=== PATIENT | male | born 1960 | race American Indian/Alaskan Native ===

== ENCOUNTER 2017-03-22 16:10 | Emergency (ER) | payer MEDICAID ==
[2017-03-22 17:04] LABS: Hemoglobin 10.8 gm/dl (11.8-15.2); Mean Corpuscular HGB Conc 33 % (32-34); Mean Corpuscular Hemoglobin 29 pg (28-32); Mean Corpuscular Volume 87 fl (84-94); Platelet Count 388 K/mm3 (140-440); Red Blood Count 3.77 M/mm3 (3.65-5.03); Red Cell Distribution Width 15.3 % (13.2-15.2); White Blood Count 10.1 K/mm3 (4.5-11.0)
[2017-03-22 17:09] LABS: Anion Gap 18 mmol/L; BUN/Creatinine Ratio 11.66; Blood Urea Nitrogen 14 mg/dL (9-20); Calcium 9.6 mg/dL (8.4-10.2); Carbon Dioxide 27 mmol/L (22-30); Chloride 100.6 mmol/L (98-107); Glucose 92 mg/dL (75-100); Potassium 4.1 mmol/L (3.6-5.0); Sodium 141 mmol/L (137-145)
[2017-03-22 17:10] VITALS: BP 114/75
[2017-03-22] MEDS ORDERED: PROVENTIL IH ONE (17:42)
[2017-03-22] MEDS ORDERED: MAGNESIUM SULFATE 2GM/50ML 2 GM/50 ML BAG IV ONE (17:42)
[2017-03-22] MEDS ORDERED: ATROVENT IH ONE (17:42)
[2017-03-22] MEDS ORDERED: PEPCID IV ONE (17:43)
[2017-03-22] MEDS ORDERED: TORADOL IV ONE (17:43)
[2017-03-22] MEDS ORDERED: NACL 0.9% 500 ML 500 ML IV ONE (17:43)
[2017-03-22 17:47] LABS: Blastocytes % (Manual) 0 %
[2017-03-22 17:48] LABS: Anisocytosis 1+; Giant Platelets Few; Hypochromasia 1+
[2017-03-22 17:49] LABS: Diff Status Complete; Platelet Estimate Consistent w Auto
[2017-03-22 18:18] LABS: INR 1.02 (0.87-1.13)
--- NOTE | 2017-03-22 19:28 | Emergency Department Report ---
ED General Adult HPI - General Chief complaint: Chest Pain Stated complaint: CHEST PAIN Time Seen by Provider: 03/22/17 17:36 Source: patient, RN notes reviewed, old records reviewed Mode of arrival: Ambulatory Limitations: No Limitations - History of Present Illness Initial comments: This is a 56-year-old male. He is previously unknown to me. Past medical history includes heart disease, 2 stents, COPD, on 2 L of home oxygen, hypertension and high cholesterol. The patient can't recall the name of his primary care doctor, warp hauler or airways operations specialist. The patient reports that his home oxygen has run out. The patient presents to the ER with chest pain and shortness of breath. The symptoms have been present for 3 days. The patient indicates the chest pain as central, and does not radiate to the back, arms or neck. There is no leg pain. There is no leg swelling. No recent trips greater than 4 hours. No recent hospital admissions. The patient further indicates that he is coughing more, has worsened wheezing, new mucous production. The patient had a stress test at this hospital a few weeks ago, as per discharge summary, it appears that the stress test was unremarkable The patient was treated empirically with albuterol, Atrovent, steroids, magnesium and Toradol. The patient was able to ambulate on oxygen, and desaturated to 94%. The patient indicated that he would not be able to have his home oxygen filled. Given that he is still actively wheezing, still having shortness of breath, does not have oxygen at home, the patient is not a safe discharge. Therefore, he will be admitted for COPD exacerbation. The patient has no pulmonary embolus or DVT risk factors, he is low risk by well 's criteria. I think acute coronary syndrome is unlikely and troponins are negative 2 -: Gradual Location: chest Severity scale (0 -10): 4 Quality: aching Consistency: other (per hpi) Improves with: other (per hpi) Worsens with: other (per hpi) Associated Symptoms: chest pain, shortness of breath - Related Data Home Medications Medication Instructions Recorded Confirmed Last Taken Albuterol Sulfate [Proair 2 puff PO Q6H 02/15/17 03/22/17 Unknown Respiclick] Aspirin 81 mg PO DAILY 02/15/17 03/22/17 Unknown Diltiazem Cd [Cardizem CD] 1 mg PO BID 02/15/17 03/22/17 Unknown Metoprolol Succinate 25 mg PO BID 02/15/17 03/22/17 Unknown Multivit-Min/FA/Lycopen/Lutein 1 each PO DAILY 02/15/17 03/22/17 Unknown [Centrum Silver Tablet] Ticagrelor [Brilinta] 90 mg PO BID 02/15/17 03/22/17 Unknown Triamter/Hctz 37.5-25 mg 1 tab PO QDAY 02/15/17 03/22/17 Unknown [Maxzide-25] Previous Rx's Medication Instructions Recorded Last Taken Type Famotidine [Pepcid] 20 mg PO BID #60 tablet 02/16/17 Unknown Rx Albuterol Sulfate [Albuterol 0.63% 0.63 mg IH Q4HR PRN #2 ml 03/22/17 Unknown Rx NEBS] Albuterol Sulfate [Proair 90 mcg IH Q4HR PRN #2 aer.pow.ba 03/22/17 Unknown Rx Respiclick] Azithromycin [Zithromax Z-CORAZON] 250 mg PO QDAY #4 tablet 03/22/17 Unknown Rx Ipratropium [place] [Atrovent Hfa] 12.9 gm IH Q4HR #2 hfa.aer.ad 03/22/17 Unknown Rx Ipratropium [Atrovent NEB] 0.5 mg IH Q4HR #2 ml 03/22/17 Unknown Rx predniSONE [Deltasone] 40 mg PO QDAY #8 tab 03/22/17 Unknown Rx Allergies Allergy/AdvReac Type Severity Reaction Status Date / Time No Known Allergies Allergy Verified 03/07/16 11:53 ED Review of Systems ROS: Stated complaint: CHEST PAIN Other details as noted in HPI Constitutional: denies: fever Eyes: denies: vision change ENT: denies: epistaxis Respiratory: cough Cardiovascular: chest pain Gastrointestinal: denies: vomiting Genitourinary: denies: dysuria Musculoskeletal: arthralgia, myalgia Skin: denies: lesions Neurological: weakness ED Past Medical Hx - Past Medical History Hx Hypertension: Yes Hx Congestive Heart Failure: No Hx Diabetes: No Hx Asthma: Yes Hx COPD: Yes Hx HIV: No - Surgical History Additional Surgical History: Cardiac Stents - Social History Smoking Status: Never Smoker Substance Use Type: None - Medications Home Medications: Home Medications Medication Instructions Recorded Confirmed Last Taken Type Albuterol Sulfate [Proair 2 puff PO Q6H 02/15/17 03/22/17 Unknown History Respiclick] Aspirin 81 mg PO DAILY 02/15/17 03/22/17 Unknown History Diltiazem Cd [Cardizem CD] 1 mg PO BID 02/15/17 03/22/17 Unknown History Metoprolol Succinate 25 mg PO BID 02/15/17 03/22/17 Unknown History Multivit-Min/FA/Lycopen/Lutein 1 each PO DAILY 02/15/17 03/22/17 Unknown History [Centrum Silver Tablet] Ticagrelor [Brilinta] 90 mg PO BID 02/15/17 03/22/17 Unknown History Triamter/Hctz 37.5-25 mg 1 tab PO QDAY 02/15/17 03/22/17 Unknown History [Maxzide-25] Famotidine [Pepcid] 20 mg PO BID #60 tablet 02/16/17 03/22/17 Unknown Rx Albuterol Sulfate [Albuterol 0.63% 0.63 mg IH Q4HR PRN #2 ml 03/22/17 Unknown Rx NEBS] Albuterol Sulfate [Proair 90 mcg IH Q4HR PRN #2 aer.pow.ba 03/22/17 Unknown Rx Respiclick] Azithromycin [Zithromax Z-CORAZON] 250 mg PO QDAY #4 tablet 03/22/17 Unknown Rx Ipratropium [place] [Atrovent Hfa] 12.9 gm IH Q4HR #2 hfa.aer.ad 03/22/17 Unknown Rx Ipratropium [Atrovent NEB] 0.5 mg IH Q4HR #2 ml 03/22/17 Unknown Rx predniSONE [Deltasone] 40 mg PO QDAY #8 tab 03/22/17 Unknown Rx ED Physical Exam - General Limitations: Physical Limitation General appearance: alert, in no apparent distress - Head Head exam: Present: atraumatic, normocephalic - Eye Eye exam: Present: normal appearance, EOMI - ENT ENT exam: Present: normal exam, normal orophraynx, mucous membranes moist, normal external ear exam - Neck Neck exam: Present: normal inspection, full ROM. Absent: tenderness, meningismus - Respiratory Respiratory exam: Present: respiratory distress, wheezes, rales, rhonchi - Cardiovascular Cardiovascular Exam: Present: normal rhythm, tachycardia, normal heart sounds. Absent: systolic murmur, diastolic murmur, rubs, gallop - GI/Abdominal GI/Abdominal exam: Present: soft, normal bowel sounds. Absent: distended, tenderness, guarding, rebound, rigid, pulsatile mass - Rectal Rectal exam: Present: deferred - Extremities Exam Extremities exam: Present: normal inspection, normal capillary refill. Absent: calf tenderness - Back Exam Back exam: Present: normal inspection, full ROM. Absent: tenderness, CVA tenderness (R), CVA tenderness (L), muscle spasm, paraspinal tenderness, vertebral tenderness - Neurological Exam Neurological exam: Present: alert, oriented X3, normal gait, other (Extraocular movements intact. Tongue midline. No facial droop. Facial sensation intact to light touch in the V1, V2, V3 distribution bilaterally. 5 and 5 strength in 4 extremities.. Sensation is intact to light touch in 4 extremities.). Absent : motor sensory deficit - Psychiatric Psychiatric exam: Present: normal affect, normal mood - Skin Skin exam: Present: warm, dry, intact, normal color. Absent: rash ED Course Vital Signs 03/22/17 03/22/17 03/22/17 16:22 17:08 17:47 Temperature 98.8 F Pulse Rate 103 H 94 H Pulse Rate [ 91 H Anterior Bilateral Throughout] Respiratory 22 16 Rate Respiratory 29 H Rate [Anterior Bilateral Throughout] Blood Pressure 113/77 Blood Pressure 114/75 [Left] O2 Sat by Pulse 93 98 Oximetry 03/22/17 03/22/17 18:43 19:02 Temperature Pulse Rate 102 H Pulse Rate [ 87 Anterior Bilateral Throughout] Respiratory 20 Rate Respiratory 20 Rate [Anterior Bilateral Throughout] Blood Pressure Blood Pressure [Left] O2 Sat by Pulse 94 Oximetry - Reevaluation(s) Reevaluation #1: 03/22/17 19:27 differential diagnosis: COPD exacerbation, pneumonia, bronchitis , acute coronary syndrome Reevaluation #2: 03/22/17 19:28 Hospital physician is paged. Reevaluation #3: 03/22/17 19:31 Dr Mabry accepts patient Reevaluation #4: 03/22/17 21:14 Change in plans. Family comes to the ER. They bring the patient's home oxygen machine. The home oxygen machine is working. The family indicates that the patient's camp head counselor Dr. Olsen. The family indicates that the patient is going to follow up with his warp hauler this Saturday, and already has an appointment. Family indicates that the patient's warp hauler is in [place]. Given that the patient has an outpatient appointment in a few days with his warp hauler, and given that he recently had a stress test and received an ACS risk stratification at this hospital, and given that his home oxygen machine as demonstrated to be working, I do not think the patient requires admission to this hospital. The patient was able to ambulate while on oxygen without desaturation in the ER. From a COPD standpoint, I believe that he is suitable for discharge. I informed the Hospital physician of this, and he was in agreement. 03/24/17 01:48 ED Medical Decision Making - Lab Data Result diagrams: 03/22/17 16:37 03/22/17 16:37 Vital Signs 03/22/17 03/22/17 03/22/17 16:22 17:08 17:47 Temperature 98.8 F Pulse Rate 103 H 94 H Pulse Rate [ 91 H Anterior Bilateral Throughout] Respiratory 22 16 Rate Respiratory 29 H Rate [Anterior Bilateral Throughout] Blood Pressure 113/77 Blood Pressure 114/75 [Left] O2 Sat by Pulse 93 98 Oximetry 03/22/17 03/22/17 18:43 19:02 Temperature Pulse Rate 102 H Pulse Rate [ 87 Anterior Bilateral Throughout] Respiratory 20 Rate Respiratory 20 Rate [Anterior Bilateral Throughout] Blood Pressure Blood Pressure [Left] O2 Sat by Pulse 94 Oximetry Lab Results 03/22/17 03/22/17 03/22/17 Range/Units 16:37 16:37 17:51 WBC 10.1 (4.5-11.0) K/mm3 RBC 3.77 (3.65-5.03) M/mm3 Hgb 10.8 L (11.8-15.2) gm/dl Hct 33.0 L (35.5-45.6) % MCV 87 (84-94) fl MCH 29 (28-32) pg MCHC 33 (32-34) % RDW 15.3 H (13.2-15.2) % Plt Count 388 (140-440) K/mm3 Eos % (Auto) Medical Apparatus Model Maker Add Manual Diff Complete Total Counted 100 Seg Neuts % (Manual) 52.0 (40.0-70.0) % Band Neutrophils % 2.0 % Lymphocytes % (Manual) 21.0 (13.4-35.0) % Reactive Lymphs % (Man) 0 % Monocytes % (Manual) 3.0 (0.0-7.3) % Eosinophils % (Manual) 20.0 H (0.0-4.3) % Basophils % (Manual) 2.0 H (0.0-1.8) % Metamyelocytes % 0 % Myelocytes % 0 % Promyelocytes % 0 % Blast Cells % 0 % Nucleated RBC % Not Reportable Seg Neutrophils # Man 5.3 (1.8-7.7) K/mm3 Band Neutrophils # 0.2 K/mm3 Lymphocytes # (Manual) 2.1 (1.2-5.4) K/mm3 Abs React Lymphs (Man) 0.0 K/mm3 Monocytes # (Manual) 0.3 (0.0-0.8) K/mm3 Eosinophils # (Manual) 2.0 H (0.0-0.4) K/mm3 Basophils # (Manual) 0.2 H (0.0-0.1) K/mm3 Metamyelocytes # 0.0 K/mm3 Myelocytes # 0.0 K/mm3 Promyelocytes # 0.0 K/mm3 Blast Cells # 0.0 K/mm3 WBC Morphology Not Reportable Hypersegmented Neuts Not Reportable Hyposegmented Neuts Not Reportable Hypogranular Neuts Not Reportable Smudge Cells Not Reportable Toxic Granulation Not Reportable Toxic Vacuolation Not Reportable Dohle Bodies Not Reportable Pelger-Huet Anomaly Not Reportable Ranjan Rods Not Reportable Platelet Estimate Consistent w auto Clumped Platelets Not Reportable Plt Clumps, EDTA Not Reportable Large Platelets Not Reportable Giant Platelets Few Platelet Satelliting Not Reportable Plt Morphology Comment Not Reportable RBC Morphology Not Reportable Dimorphic RBCs Not Reportable Polychromasia Not Reportable Hypochromasia 1+ Poikilocytosis Not Reportable Anisocytosis 1+ Microcytosis Not Reportable Macrocytosis Not Reportable Spherocytes Not Reportable Pappenheimer Bodies Not Reportable Sickle Cells Not Reportable Target Cells Not Reportable Tear Drop Cells Not Reportable Ovalocytes Not Reportable Helmet Cells Not Reportable [place] Bodies Not Reportable [place] Rings Not Reportable Kat Cells Not Reportable Bite Cells Not Reportable Crenated Cell Not Reportable Elliptocytes Not Reportable Acanthocytes (Spur) Not Reportable Rouleaux Not Reportable Hemoglobin C Crystals Not Reportable Schistocytes Not Reportable Malaria parasites Not Reportable Ramon Bodies Not Reportable Hem Pathologist Commnt No PT 13.3 (12.2-14.9) Sec. INR 1.02 (0.87-1.13) Sodium 141 (137-145) mmol/L Potassium 4.1 (3.6-5.0) mmol/L Chloride 100.6 (98-107) mmol/L Carbon Dioxide 27 (22-30) mmol/L Anion Gap 18 mmol/L BUN 14 (9-20) mg/dL Creatinine 1.2 (0.8-1.5) mg/dL Estimated GFR > 60 ml/min BUN/Creatinine Ratio 11.66 % Glucose 92 (75-100) mg/dL Calcium 9.6 (8.4-10.2) mg/dL Troponin T < 0.010 (0.00-0.029) ng/mL 03/22/17 Range/Units 18:37 WBC (4.5-11.0) K/mm3 RBC (3.65-5.03) M/mm3 Hgb (11.8-15.2) gm/dl Hct (35.5-45.6) % MCV (84-94) fl MCH (28-32) pg MCHC (32-34) % RDW (13.2-15.2) % Plt Count (140-440) K/mm3 Eos % (Auto) Add Manual Diff Total Counted Seg Neuts % (Manual) (40.0-70.0) % Band Neutrophils % % Lymphocytes % (Manual) (13.4-35.0) % Reactive Lymphs % (Man) % Monocytes % (Manual) (0.0-7.3) % Eosinophils % (Manual) (0.0-4.3) % Basophils % (Manual) (0.0-1.8) % Metamyelocytes % % Myelocytes % % Promyelocytes % % Blast Cells % % Nucleated RBC % Seg Neutrophils # Man (1.8-7.7) K/mm3 Band Neutrophils # K/mm3 Lymphocytes # (Manual) (1.2-5.4) K/mm3 Abs React Lymphs (Man) K/mm3 Monocytes # (Manual) (0.0-0.8) K/mm3 Eosinophils # (Manual) (0.0-0.4) K/mm3 Basophils # (Manual) (0.0-0.1) K/mm3 Metamyelocytes # K/mm3 Myelocytes # K/mm3 Promyelocytes # K/mm3 Blast Cells # K/mm3 WBC Morphology Hypersegmented Neuts Hyposegmented Neuts Hypogranular Neuts Smudge Cells Toxic Granulation Toxic Vacuolation Dohle Bodies Pelger-Huet Anomaly Ranjan Rods Platelet Estimate Clumped Platelets Plt Clumps, EDTA Large Platelets Giant Platelets Platelet Satelliting Plt Morphology Comment RBC Morphology Dimorphic RBCs Polychromasia Hypochromasia Poikilocytosis Anisocytosis Microcytosis Macrocytosis Spherocytes Pappenheimer Bodies Sickle Cells Target Cells Tear Drop Cells Ovalocytes Helmet Cells Pinto-Bandon Bodies [place] Cells Bite Cells Crenated Cell Elliptocytes Acanthocytes (Spur) Rouleaux Hemoglobin C Crystals Schistocytes Malaria parasites Ramon Bodies Hem Pathologist Commnt PT (12.2-14.9) Sec. INR (0.87-1.13) Sodium (137-145) mmol/L Potassium (3.6-5.0) mmol/L Chloride (98-107) mmol/L Carbon Dioxide (22-30) mmol/L Anion Gap mmol/L BUN (9-20) mg/dL Creatinine (0.8-1.5) mg/dL Estimated GFR ml/min BUN/Creatinine Ratio % Glucose (75-100) mg/dL Calcium (8.4-10.2) mg/dL Troponin T < 0.010 (0.00-0.029) ng/mL - EKG Data -: EKG Interpreted by Me EKG shows normal: sinus rhythm Rate: normal - EKG Data 03/22/17 19:27 Sinus tachycardia, 101 bpm, normal axis, normal intervals, QTC 469 ms, not morphologically consistent with STEMI, when compared to old EKG from February 2017 , there are pseudo-normalized T waves in 3 and aVF. There are T-wave inversions in 1 and aVL. changes are non specific - Radiology Data Radiology results: image reviewed interpreted by me: X-ray the chest is hyperinflated. Otherwise no acute disease. Critical care attestation.: If time is entered above; I have spent that time in minutes in the direct care of this critically ill patient, excluding procedure time. ED Disposition Clinical Impression: Reactive airway disease with wheezing with acute exacerbation Disposition: DISCHARGED TO HOME OR SELFCARE Is pt being admited?: No Does the pt Need Aspirin: Yes Condition: Poor Instructions: Chest Pain (ED) Additional Instructions: Take medications as directed. Follow-up with your warp hauler this Saturday as scheduled. Take the breathing medications as directed. Follow up with her airways operations specialist within the next week. Return to the ER right away with fevers or chills, chest pain or shortness of breath, nausea or vomiting, inability to tolerate liquid feeds. Use her home oxygen machine. Prescriptions: Albuterol Sulfate [Albuterol 0.63% NEBS] 0.63 mg IH Q4HR PRN #2 ml PRN Reason: Wheezing Albuterol Sulfate [Proair Respiclick] 90 mcg IH Q4HR PRN #2 aer.pow.ba PRN Reason: Wheezing Azithromycin [Zithromax Z-CORAZON] 250 mg PO QDAY #4 tablet Ipratropium [Atrovent NEB] 0.5 mg IH Q4HR #2 ml Ipratropium [place] [Atrovent Hfa] 12.9 gm IH Q4HR #2 hfa.aer.ad predniSONE [Deltasone] 40 mg PO QDAY #8 tab Referrals: PRIMARY CARE, [Primary Care Provider] - 3-5 Days LINDA OLSEN MD [Staff Physician] - 3-5 Days COTY MARTINEZ MD [Staff Physician] - 3-5 Days JUAN FALLON MD [Staff Physician] - 3-5 Days
[2017-03-22] MEDS ORDERED: BABY ASPIRIN PO ONE (19:30)
--- NOTE | 2017-03-23 09:33 | XRay Report ---
CHEST TWO VIEWS: 03/22/17 16:10:00 CLINICAL: Chest pain. COMPARISON: 02/15/17 FINDINGS: Normal heart and pulmonary vasculature. The lungs are normally expanded and clear.The bones and soft tissues are unremarkable. IMPRESSION: Normal chest.
== END 2017-03-22 22:36 | disposition home or self-care (01) ==
LOC: ED 16:10
DX: J45.901 Unspecified asthma with (acute) exacerbation (principal); I10 Essential (primary) hypertension; J44.9 Chronic obstructive pulmonary disease, unspecified
CPT/HCPCS: 36415; 71020; 80048; 84484; 85007; 85025; 85610; 93005; 94644; 96365; 96375; 99285; J1885; J2930; J3475; J7040

== ENCOUNTER 2017-04-13 12:35 | Emergency (ER) | payer MEDICAID ==
[2017-04-13 12:52] VITALS: BP 119/89
--- NOTE | 2017-04-13 13:55 | Emergency Department Report ---
ED Back Pain/Injury HPI - General Chief Complaint: Back Pain/Injury Stated Complaint: LOWER BACK PAIN Time Seen by Provider: 04/13/17 13:55 Source: patient Limitations: No Limitations - History of Present Illness Initial Comments: Patient complaining of low back pain with movement. Denies back injury. Patient also denies abdominal pain, testicular pain, waxing and waning back pain , nausea vomiting diarrhea, hematochezia, melena, diaphoresis, or weakness dizziness. Patient describes the pain as an aching and points to low area back equivalent to SI joints. Patient does not describe a tearing pain. Patient states his pain is relieved with his sister's pain pills, he does not know the name of the pain pills. MD Complaint: back pain Similar Symptoms Previously: Yes Place: home Severity: moderate Severity scale (0 -10): 3 - Related Data Home Medications Medication Instructions Recorded Confirmed Last Taken Albuterol Sulfate [Proair 2 puff PO Q6H 02/15/17 03/22/17 Unknown Respiclick] Aspirin 81 mg PO DAILY 02/15/17 03/22/17 Unknown Diltiazem Cd [Cardizem CD] 1 mg PO BID 02/15/17 03/22/17 Unknown Metoprolol Succinate 25 mg PO BID 02/15/17 03/22/17 Unknown Multivit-Min/FA/Lycopen/Lutein 1 each PO DAILY 02/15/17 03/22/17 Unknown [Centrum Silver Tablet] Ticagrelor [Brilinta] 90 mg PO BID 02/15/17 03/22/17 Unknown Triamter/Hctz 37.5-25 mg 1 tab PO QDAY 02/15/17 03/22/17 Unknown [Maxzide-25] Previous Rx's Medication Instructions Recorded Last Taken Type Famotidine [Pepcid] 20 mg PO BID #60 tablet 02/16/17 Unknown Rx Albuterol Sulfate [Albuterol 0.63% 0.63 mg IH Q4HR PRN #2 ml 03/22/17 Unknown Rx NEBS] Albuterol Sulfate [Proair 90 mcg IH Q4HR PRN #2 aer.pow.ba 03/22/17 Unknown Rx Respiclick] Azithromycin [Zithromax Z-CORAZON] 250 mg PO QDAY #4 tablet 03/22/17 Unknown Rx Ipratropium [place] [Atrovent Hfa] 12.9 gm IH Q4HR #2 hfa.aer.ad 03/22/17 Unknown Rx Ipratropium [Atrovent NEB] 0.5 mg IH Q4HR #2 ml 03/22/17 Unknown Rx predniSONE [Deltasone] 40 mg PO QDAY #8 tab 03/22/17 Unknown Rx Ibuprofen [Motrin] 800 mg PO Q8HR PRN #20 tablet 04/13/17 Unknown Rx Methocarbamol [Robaxin TAB] 750 mg PO Q8H PRN #20 tablet 04/13/17 Unknown Rx traMADol [Ultram 50 MG tab] 50 mg PO Q4HR PRN #20 tablet 04/13/17 Unknown Rx Allergies Allergy/AdvReac Type Severity Reaction Status Date / Time No Known Allergies Allergy Verified 03/07/16 11:53 ED Review of Systems ROS: Stated complaint: LOWER BACK PAIN Other details as noted in HPI ED Past Medical Hx - Past Medical History Hx Hypertension: Yes Hx Congestive Heart Failure: No Hx Diabetes: No Hx Asthma: Yes Hx COPD: Yes Hx HIV: No - Surgical History Additional Surgical History: Cardiac Stents - Social History Smoking Status: Never Smoker Substance Use Type: None - Medications Home Medications: Home Medications Medication Instructions Recorded Confirmed Last Taken Type Albuterol Sulfate [Proair 2 puff PO Q6H 02/15/17 03/22/17 Unknown History Respiclick] Aspirin 81 mg PO DAILY 02/15/17 03/22/17 Unknown History Diltiazem Cd [Cardizem CD] 1 mg PO BID 02/15/17 03/22/17 Unknown History Metoprolol Succinate 25 mg PO BID 02/15/17 03/22/17 Unknown History Multivit-Min/FA/Lycopen/Lutein 1 each PO DAILY 02/15/17 03/22/17 Unknown History [Centrum Silver Tablet] Ticagrelor [Brilinta] 90 mg PO BID 02/15/17 03/22/17 Unknown History Triamter/Hctz 37.5-25 mg 1 tab PO QDAY 02/15/17 03/22/17 Unknown History [Maxzide-25] Famotidine [Pepcid] 20 mg PO BID #60 tablet 02/16/17 03/22/17 Unknown Rx Albuterol Sulfate [Albuterol 0.63% 0.63 mg IH Q4HR PRN #2 ml 03/22/17 Unknown Rx NEBS] Albuterol Sulfate [Proair 90 mcg IH Q4HR PRN #2 aer.pow.ba 03/22/17 Unknown Rx Respiclick] Azithromycin [Zithromax Z-CORAZON] 250 mg PO QDAY #4 tablet 03/22/17 Unknown Rx Ipratropium [place] [Atrovent Hfa] 12.9 gm IH Q4HR #2 hfa.aer.ad 03/22/17 Unknown Rx Ipratropium [Atrovent NEB] 0.5 mg IH Q4HR #2 ml 03/22/17 Unknown Rx predniSONE [Deltasone] 40 mg PO QDAY #8 tab 03/22/17 Unknown Rx Ibuprofen [Motrin] 800 mg PO Q8HR PRN #20 tablet 04/13/17 Unknown Rx Methocarbamol [Robaxin TAB] 750 mg PO Q8H PRN #20 tablet 04/13/17 Unknown Rx traMADol [Ultram 50 MG tab] 50 mg PO Q4HR PRN #20 tablet 04/13/17 Unknown Rx ED Physical Exam - General Limitations: No Limitations General appearance: alert, in no apparent distress - Head Head exam: Present: atraumatic, normocephalic - Eye Eye exam: Present: normal appearance, PERRL, EOMI - ENT ENT exam: Present: normal exam, mucous membranes moist - Neck Neck exam: Present: normal inspection, full ROM. Absent: tenderness, meningismus - Respiratory Respiratory exam: Present: normal lung sounds bilaterally. Absent: respiratory distress, wheezes, rales, chest wall tenderness, accessory muscle use - Cardiovascular Cardiovascular Exam: Present: regular rate - GI/Abdominal GI/Abdominal exam: Present: soft. Absent: distended, tenderness, guarding, rebound, rigid, mass, bruit, pulsatile mass - Extremities Exam Extremities exam: Present: normal capillary refill. Absent: pedal edema, joint swelling, calf tenderness - Back Exam Back exam: Present: normal inspection. Absent: CVA tenderness (R), CVA tenderness (L), muscle spasm - Neurological Exam Neurological exam: Present: alert, oriented X3, normal gait. Absent: altered - Skin Skin exam: Present: warm, dry, intact, normal color. Absent: rash ED Course Vital Signs 04/13/17 12:50 Temperature 98.6 F Pulse Rate 102 H Respiratory 18 Rate Blood Pressure 119/89 O2 Sat by Pulse 100 Oximetry - Reevaluation(s) Reevaluation #1: 04/13/17 15:55 Patient resting comfortably, normotensive, normal cardiac. Discussed results, findings, plan, prescriptions and discharge instructions with patient. Critical care attestation.: If time is entered above; I have spent that time in minutes in the direct care of this critically ill patient, excluding procedure time. ED Disposition Clinical Impression: Low back pain Disposition: DISCHARGED TO HOME OR SELFCARE Is pt being admited?: No Condition: Stable Instructions: Acute Low Back Pain (ED) Prescriptions: Ibuprofen [Motrin] 800 mg PO Q8HR PRN #20 tablet PRN Reason: Pain Methocarbamol [Robaxin TAB] 750 mg PO Q8H PRN #20 tablet PRN Reason: Pain traMADol [Ultram 50 MG tab] 50 mg PO Q4HR PRN #20 tablet PRN Reason: Pain Referrals: PRIMARY CARE, [Primary Care Provider] - 3-5 Days
--- NOTE | 2017-04-13 15:01 | Cat Scan Report ---
FINAL REPORT EXAM: CT ABDOMEN PELVIS WO CON HISTORY: lt flank pain TECHNIQUE: CT of the abdomen and pelvis without IV contrast. Coronal and sagittal reconstructed imaging provided. PRIORS: None currently available. FINDINGS: ABDOMEN: Bibasilar linear scarring or discoid subsegmental atelectasis noted. Small hiatal hernia. Stomach is otherwise unremarkable. Liver, gallbladder, spleen, pancreas, and adrenals are unremarkable. Kidneys do not demonstrate any hydronephrosis. No nephroureteral stones. Mild bilateral perinephric stranding noted. IVC is intact. Mild aortic atherosclerotic disease. No periaortic or retroperitoneal mass or adenopathy. [id number] stool is present in the colon. Left colon diverticulosis noted. No wall thickening or inflammatory changes. Appendix is normal. Terminal ilium is unremarkable. Small bowel loops are unremarkable. No obstructive pattern. No free air or free fluid. Fat containing umbilical hernia without strangulation. PELVIS: Bladder is unremarkable. There is no pelvic mass or adenopathy. Bilateral fat containing inguinal hernias without strangulation. Bones: No suspicious osseous lesions on this limited examination of the skeleton. Metastatic disease better evaluated with bone scan. Degenerative changes are in the spine. Left L5 partial sacralization with pseudoarthrosis noted. Mild bilateral sacroiliitis noted. IMPRESSION: Mild bilateral perinephric stranding noted. Nonspecific. Pyelonephritis not excluded but stranding may be chronic. No hydronephrosis. No nephroureteral stones. Small hiatal hernia. Colonic diverticulosis without CT evidence for diverticulitis. Bilateral fat containing inguinal hernias without strangulation. Left L5 partial sacralization with pseudoarthrosis. This can be symptomatic in some patients. Mild bilateral sacroiliitis.
== END 2017-04-13 16:11 | disposition home or self-care (01) ==
LOC: ED 12:35
DX: M54.5 Low back pain (principal); I10 Essential (primary) hypertension; J45.909 Unspecified asthma, uncomplicated; J44.9 Chronic obstructive pulmonary disease, unspecified; Z86.72 Personal history of thrombophlebitis
CPT/HCPCS: 74176

== ENCOUNTER 2017-04-21 08:07 | Inpatient (IN) | payer MEDICAID ==
[2017-04-21] MEDS ORDERED: TYLENOL ONE (08:21)
[2017-04-21] MEDS ORDERED: TYLENOL PO ONE (08:24)
[2017-04-21 08:55] LABS: Basophils % (Auto) 0.3 % (0.0-1.8); Eosinophils % (Auto) 3.4 % (0.0-4.3); Hematocrit 31.7 % (35.5-45.6); Hemoglobin 10.1 gm/dl (11.8-15.2); Mean Corpuscular HGB Conc 32 % (32-34); Mean Corpuscular Hemoglobin 28 pg (28-32); Mean Corpuscular Volume 87 fl (84-94); Platelet Count 436 K/mm3 (140-440); Red Blood Count 3.64 M/mm3 (3.65-5.03); Red Cell Distribution Width 14.6 % (13.2-15.2); White Blood Count 18.3 K/mm3 (4.5-11.0)
[2017-04-21 09:06] LABS: Anion Gap 20 mmol/L; BUN/Creatinine Ratio 10.71; Blood Urea Nitrogen 15 mg/dL (9-20); Calcium 9.2 mg/dL (8.4-10.2); Carbon Dioxide 25 mmol/L (22-30); Chloride 96.5 mmol/L (98-107); Glucose 105 mg/dL (75-100); Potassium 4.1 mmol/L (3.6-5.0); Sodium 137 mmol/L (137-145)
--- NOTE | 2017-04-21 09:19 | XRay Report ---
Chest 2 views: Compared to 03/22/17. History: Fever/cough. Findings: Normal cardiomediastinal silhouette. Trachea is midline. No consolidation, pneumothorax or pleural effusion. Impression: No acute cardiopulmonary findings.
--- NOTE | 2017-04-21 15:24 | Emergency Department Report ---
ED General Adult HPI - General Chief complaint: Fever Stated complaint: CHEST PAIN/SHAKING/VOMIT BLOOD Time Seen by Provider: 04/21/17 15:20 Source: patient Mode of arrival: Ambulatory Limitations: No Limitations, Physical Limitation - History of Present Illness Initial comments: This patient is an exceptionally poor historian that is reticent to elaborate on any of his history. He also seems to have a very limited medical Foundation. He can tell me he does not have an asthma or emphysema but does have "the other thing". He is aware that he has had cardiac intervention ( "stints"). He gives 1 word answers in terms of getting to laboratory on his history and is poorly cooperative thereof. As far as I can tell the patient has been having occasional cough. He states he could use a breathing treatment. He states he "vomited all morning "but prior to this "spit up blood ". He denies actually having hemoptysis. He states that this was not secondary to coughing. As far as I can tell the patient, may have had some mild hematemesis but it is difficult to be certain. He states he's had no problems with his bowel movement, no black or melanotic stool. Complains of midsternal chest pain which is not currently present. He also complains of discomfort involving his entire abdomen. He states he had chills last night but did not take his temperature. He arrived with a temperature of 102.4 and a heart rate of 133. However the time of my encounter his heart rate was not substantially tachycardic. He denies any sick contacts. Somewhat amazingly the patient states that he has not been admitted to this facility in a very long time. Indeed he was seen here in the emergency department on and when he had a CT of his abdomen and pelvis which demonstrated inguinal hernias containing fat but no other significant finding. He was admitted for chest pain on 02/16/2017 with a discharge diagnosis of chest pain secondary to GERD with esophagitis. Obviously this is a extremely poor if not a reliable historian -: days(s) Location: chest, abdomen Radiation: non-radiation Severity scale (0 -10): 5 Quality: aching Consistency: intermittent Improves with: none Worsens with: none Associated Symptoms: denies other symptoms Treatments Prior to Arrival: none - Related Data Home Medications Medication Instructions Recorded Confirmed Last Taken Albuterol Sulfate [Proair 2 puff PO Q6H 02/15/17 03/22/17 Unknown Respiclick] Aspirin 81 mg PO DAILY 02/15/17 03/22/17 Unknown Diltiazem Cd [Cardizem CD] 1 mg PO BID 02/15/17 03/22/17 Unknown Metoprolol Succinate 25 mg PO BID 02/15/17 03/22/17 Unknown Multivit-Min/FA/Lycopen/Lutein 1 each PO DAILY 02/15/17 03/22/17 Unknown [Centrum Silver Tablet] Ticagrelor [Brilinta] 90 mg PO BID 02/15/17 03/22/17 Unknown Triamter/Hctz 37.5-25 mg 1 tab PO QDAY 02/15/17 03/22/17 Unknown [Maxzide-25] Previous Rx's Medication Instructions Recorded Last Taken Type Famotidine [Pepcid] 20 mg PO BID #60 tablet 02/16/17 Unknown Rx Albuterol Sulfate [Albuterol 0.63% 0.63 mg IH Q4HR PRN #2 ml 03/22/17 Unknown Rx NEBS] Albuterol Sulfate [Proair 90 mcg IH Q4HR PRN #2 aer.pow.ba 03/22/17 Unknown Rx Respiclick] Azithromycin [Zithromax Z-CORAZON] 250 mg PO QDAY #4 tablet 03/22/17 Unknown Rx Ipratropium [place] [Atrovent Hfa] 12.9 gm IH Q4HR #2 hfa.aer.ad 03/22/17 Unknown Rx Ipratropium [Atrovent NEB] 0.5 mg IH Q4HR #2 ml 03/22/17 Unknown Rx predniSONE [Deltasone] 40 mg PO QDAY #8 tab 03/22/17 Unknown Rx Ibuprofen [Motrin] 800 mg PO Q8HR PRN #20 tablet 04/13/17 Unknown Rx Methocarbamol [Robaxin TAB] 750 mg PO Q8H PRN #20 tablet 04/13/17 Unknown Rx traMADol [Ultram 50 MG tab] 50 mg PO Q4HR PRN #20 tablet 04/13/17 Unknown Rx Allergies Allergy/AdvReac Type Severity Reaction Status Date / Time No Known Allergies Allergy Verified 03/07/16 11:53 ED Review of Systems ROS: Stated complaint: CHEST PAIN/SHAKING/VOMIT BLOOD Other details as noted in HPI Constitutional: denies: chills, fever Eyes: denies: eye pain, eye discharge, vision change ENT: denies: ear pain, throat pain Respiratory: cough, shortness of breath. denies: wheezing Cardiovascular: chest pain. denies: palpitations Endocrine: no symptoms reported Gastrointestinal: abdominal pain. denies: nausea, diarrhea Genitourinary: denies: urgency, dysuria Musculoskeletal: denies: back pain, joint swelling, arthralgia Skin: denies: rash, lesions Neurological: denies: headache, weakness, paresthesias Psychiatric: denies: anxiety, depression Hematological/Lymphatic: denies: easy bleeding, easy bruising ED Past Medical Hx - Past Medical History Previous Medical History?: Yes Hx Hypertension: Yes Hx Congestive Heart Failure: No Hx Diabetes: No Hx Asthma: Yes Hx COPD: Yes Hx HIV: No - Surgical History Past Surgical History?: Yes Additional Surgical History: Cardiac Stents - Social History Smoking Status: Never Smoker Substance Use Type: None - Medications Home Medications: Home Medications Medication Instructions Recorded Confirmed Last Taken Type Albuterol Sulfate [Proair 2 puff PO Q6H 02/15/17 03/22/17 Unknown History Respiclick] Aspirin 81 mg PO DAILY 02/15/17 03/22/17 Unknown History Diltiazem Cd [Cardizem CD] 1 mg PO BID 02/15/17 03/22/17 Unknown History Metoprolol Succinate 25 mg PO BID 02/15/17 03/22/17 Unknown History Multivit-Min/FA/Lycopen/Lutein 1 each PO DAILY 02/15/17 03/22/17 Unknown History [Centrum Silver Tablet] Ticagrelor [Brilinta] 90 mg PO BID 02/15/17 03/22/17 Unknown History Triamter/Hctz 37.5-25 mg 1 tab PO QDAY 02/15/17 03/22/17 Unknown History [Maxzide-25] Famotidine [Pepcid] 20 mg PO BID #60 tablet 02/16/17 03/22/17 Unknown Rx Albuterol Sulfate [Albuterol 0.63% 0.63 mg IH Q4HR PRN #2 ml 03/22/17 Unknown Rx NEBS] Albuterol Sulfate [Proair 90 mcg IH Q4HR PRN #2 aer.pow.ba 03/22/17 Unknown Rx Respiclick] Azithromycin [Zithromax Z-CORAZON] 250 mg PO QDAY #4 tablet 03/22/17 Unknown Rx Ipratropium [place] [Atrovent Hfa] 12.9 gm IH Q4HR #2 hfa.aer.ad 03/22/17 Unknown Rx Ipratropium [Atrovent NEB] 0.5 mg IH Q4HR #2 ml 03/22/17 Unknown Rx predniSONE [Deltasone] 40 mg PO QDAY #8 tab 03/22/17 Unknown Rx Ibuprofen [Motrin] 800 mg PO Q8HR PRN #20 tablet 04/13/17 Unknown Rx Methocarbamol [Robaxin TAB] 750 mg PO Q8H PRN #20 tablet 04/13/17 Unknown Rx traMADol [Ultram 50 MG tab] 50 mg PO Q4HR PRN #20 tablet 04/13/17 Unknown Rx ED Physical Exam - General Limitations: No Limitations General appearance: alert, in no apparent distress - Head Head exam: Present: atraumatic, normocephalic - Eye Eye exam: Present: normal appearance - ENT ENT exam: Present: mucous membranes moist - Neck Neck exam: Present: normal inspection - Respiratory Respiratory exam: Present: decreased breath sounds, other (normal work of breathing). Absent: respiratory distress, wheezes, rales, rhonchi, stridor, chest wall tenderness, accessory muscle use - Cardiovascular Cardiovascular Exam: Present: regular rate, normal rhythm. Absent: systolic murmur, diastolic murmur, rubs, gallop - GI/Abdominal GI/Abdominal exam: Present: soft, normal bowel sounds. Absent: distended, tenderness, guarding, rebound, rigid - Rectal Rectal exam: Present: deferred - Extremities Exam Extremities exam: Present: normal inspection - Back Exam Back exam: Present: normal inspection - Neurological Exam Neurological exam: Present: alert, oriented X3, CN II-XII intact. Absent: motor sensory deficit - Psychiatric Psychiatric exam: Present: normal affect, normal mood - Skin Skin exam: Present: warm, dry, intact, normal color. Absent: rash ED Course Vital Signs 04/21/17 04/21/17 08:22 16:11 Temperature 102.4 F H Pulse Rate 133 H Pulse Rate [ 914 H Anterior Bilateral Throughout] Respiratory 16 Rate Respiratory 18 Rate [Anterior Bilateral Throughout] Blood Pressure 131/76 O2 Sat by Pulse 93 Oximetry ED Medical Decision Making - Lab Data Result diagrams: 04/21/17 08:31 04/21/17 08:31 Laboratory Results - last 24 hr 04/21/17 04/21/17 04/21/17 08:31 08:31 09:27 WBC 18.3 H RBC 3.64 L Hgb 10.1 L Hct 31.7 L MCV 87 MCH 28 MCHC 32 RDW 14.6 Plt Count 436 Lymph % (Auto) 4.3 L [place] % (Auto) 5.7 Eos % (Auto) 3.4 Baso % (Auto) 0.3 Lymph # 0.8 L [place] # 1.0 H Eos # 0.6 H Baso # 0.1 Seg Neutrophils % 86.3 H Seg Neutrophils # 15.8 H Sodium 137 Potassium 4.1 Chloride 96.5 L Carbon Dioxide 25 Anion Gap 20 BUN 15 Creatinine 1.4 Estimated GFR > 60 BUN/Creatinine Ratio 10.71 Glucose 105 H Lactic Acid 1.50 Calcium 9.2 Troponin T < 0.010 04/21/17 04/21/17 11:08 14:50 WBC RBC Hgb Hct MCV MCH MCHC RDW Plt Count Lymph % (Auto) [place] % (Auto) Eos % (Auto) Baso % (Auto) Lymph # [place] # Eos # Baso # Seg Neutrophils % Seg Neutrophils # Sodium Potassium Chloride Carbon Dioxide Anion Gap BUN Creatinine Estimated GFR BUN/Creatinine Ratio Glucose Lactic Acid Calcium Troponin T < 0.010 < 0.010 - EKG Data EKG shows normal: sinus rhythm, axis, intervals, QRS complexes, ST-T waves Rate: tachycardia - EKG Data When compared to previous EKG there are: no significant change Interpretation: other (incomplete right bundle branch block probable old inferior wall zone. Nonspecific ST-T wave changes) - Radiology Data Radiology results: report reviewed interpreted by me: Chest x-ray without apparent infiltrate - Medical Decision Making Patient had evidence of Serzone arrival was sinus tachycardia and fever. We didn't find an infiltrate. However he will get antibiotic coverage with Levaquin blood cultures and further evaluation for source. Urinalysis is yet pending. In addition the patient gave a history of upper GI bleeding. He is on Brilinta so he is at risk. Complains of chest pain although recent cardiac workup was suggested to be negative and likely to be GI or due to esophagitis. I don't think the patient was scoped. He might be a candidate for GI consult. He indeed has had a recent CT of his abdomen and I don't think that needs to be repeated. In a case he has multiple indications for at least an overnight stay in the hospital. I have discussed this with Dr. Mabry who will be admitting the patient to the hospital service. Critical care attestation.: If time is entered above; I have spent that time in minutes in the direct care of this critically ill patient, excluding procedure time. ED Disposition Clinical Impression: SIRS (systemic inflammatory response syndrome), Upper GI bleeding Chest pain Qualifiers: Chest pain type: unspecified Qualified Code(s): R07.9 - Chest pain, unspecified Abdominal pain Qualifiers: Abdominal location: generalized Qualified Code(s): R10.84 - Generalized abdominal pain Disposition: DISCHARGED TO HOME OR SELFCARE Is pt being admited?: Yes Does the pt Need Aspirin: No (concern for GI bleeding already on Brilinta) Condition: Stable Instructions: Chest Pain (ED) Referrals: PRIMARY CARE, [Primary Care Provider] - 3-5 Days Time of Disposition: 16:33
[2017-04-21] MEDS ORDERED: PROTONIX IV ONE (16:06)
[2017-04-21] MEDS ORDERED: DUONEB 0.5 MG-3 MG/3 ML SOLN IH ONE ×2 (16:08→16:09)
[2017-04-21] MEDS ORDERED: NACL 0.9% 1000 ML 500 ML IV ONE (16:09)
[2017-04-21] MEDS ORDERED: NACL 0.9% 1000 ML 1,000 ML IV ONE (16:09)
[2017-04-21] MEDS ORDERED: LEVAQUIN 750MG/150ML 750 MG/150 ML BAG IV ONE (16:09)
[2017-04-21 16:56] LABS: Bilirubin,Urine NEG (Negative); Blood,Urine NEG (Negative); Ketones,Urine NEG (Negative); Leukocyte Esterase,Urine LG (Negative); Mucus,Urine FEW /HPF; Nitrite,Urine POS (Negative); Protein,Urine <15 mg/dL mg/dL (Negative); Urobilinogen,Urine < 2.0 mg/dL (<2.0)
--- NOTE | 2017-04-21 17:43 | Event Note ---
Date: 04/21/17 See H/p in reports SIRS sec to UTI-ON ROCEPHIN Upper GI bleed-ON PROTONIX DRIP CAD HTN Copd
[2017-04-21] MEDS ORDERED: CATAPRES-TTS PATCH TD SCH (23:00)
--- NOTE | 2017-04-22 09:41 | History and Physical Report ---
CHIEF COMPLAINT: Vomited blood couple of times. HISTORY OF PRESENT ILLNESS: A 56-year-old male very poor historian with history of hypertension and coronary artery disease comes in for vomiting blood couple of times. Small amounts about 15 mL each time. Noone has witnessed. The patient ____ bedside. Seizures have not witnessed. The patient is unable to quantify and not sure how many times he has vomited. He says he has vomited blood that is small in quantity. No melena, no black tarry stools. No abdominal pain. PAST MEDICAL HISTORY: Significant for hypertension, COPD and coronary artery disease. PAST SURGICAL HISTORY: Cardiac stents x2 in the past. SOCIAL HISTORY: Does not smoke. Alcohol occasionally. CURRENT MEDICATIONS: On the chart. Significant one is Brilinta 90 mg twice a day, diltiazem 120 mg p.o. b.i.d., metoprolol 25 mg twice a day and ibuprofen 800 mg p.o q. 8 p.r.n. recently 04/13/2017. FAMILY HISTORY: Significant for hypertension. REVIEW OF SYSTEMS: CONSTITUTIONAL: No fever. No weight loss. No weight gain. HEENT: No sore throat. No postnasal drip. No diplopia. CARDIOVASCULAR: S1, S2 present. No shortness of breath, no chest pain, no palpitations, no wheezing. GASTROINTESTINAL: Vomited blood x 2. Not sure about the amount. GENITOURINARY: No dysuria, no flank pain. MUSCULOSKELETAL: No joint pains. CENTRAL NERVOUS SYSTEM: No syncope, no seizures. SKIN: No rashes. PSYCHIATRIC: No depression, no suicidal and homicidal ideation. A 14-point review of systems other than vomiting blood review of systems is essentially negative. PHYSICAL EXAMINATION: GENERAL: Middle-aged male looks older than his age. VITAL SIGNS: Blood pressure is 134/85, temperature is 97.8, pulse is 95, respirations are 16. HEENT: Unremarkable. Pupils equal and reactive. NECK: Supple. No lymphadenopathy. No thyromegaly. LUNGS: Clear to auscultation and percussion. Good air entry. CARDIOVASCULAR: S1, S2 heard. No gallop, no murmur, no rub. Apical impulse in left fifth intercostal space and midclavicular line. ABDOMEN: Soft and benign. No hepatosplenomegaly. No guarding. No rigidity. Occult blood negative. EXTREMITIES: Good pedal pulses. No pedal edema. CENTRAL NERVOUS SYSTEM: Alert and oriented x 4. Nonfocal exam. SKIN: Normal. LABORATORY DATA: White count is 18,300. H and H is 10.1 and 31.7, platelet count is 436,000. Sodium is 137, potassium is 4.1, chloride is 96.5. BUN and creatinine is 15 and 1.4. Glucose is 105. Urine WBCs 69. EKG shows sinus rhythm, normal axis and intervals, normal QRS complexes, nonspecific ST-T wave changes. Also, an incomplete right bundle branch block. Chest x-ray did not reveal any infiltrate. ASSESSMENT AND PLAN: 1. Systemic inflammatory response syndrome. The patient has a high white count. Urine is positive for infection. Urine white cells are 69. ____ was normal. We will treat it as systemic inflammatory response syndrome with high white count and urine WBCs. The patient started on Rocephin 2 grams IV piggyback q. 24. IV fluids in the meantime. 2. Upper GI bleed. ____. The patient started on Protonix drip and also GI consult requested. 3. Coronary artery disease. We will hold Brilinta for the time being. 4. Hypertension. Continue metoprolol and diltiazem and triamterene/hydrochlorothiazide. 5. COPD. Continue DuoNeb p.r.n. basis. 6. Deep venous thrombosis prophylaxis, SCDs only. In summary, the patient has systemic inflammatory response syndrome and possible upper GI bleeding. The patient to get GI consult for possible upper endoscopy. JOB# [id number] ROBERT/ISIDORO
[2017-04-22] MEDS ORDERED: PNEUMOVAX 23 IM ONE (12:00)
[2017-04-22] MEDS ORDERED: FLUARIX QUAD 2016-2017(36 MOS+) IM ONE (12:00)
[2017-04-22] MEDS: NACL 0.9% 1000 ML 1,000 ML IV ONE ×2 (12:25→12:35)
[2017-04-22] MEDS: PROTONIX 80 MG in NACL 0.9% 100 ML IV SCH ×2 (12:31→21:54)
[2017-04-22] MEDS: ROCEPHIN/NS 2 GM/100 ML 2 GM/100 ML BAG IV SCH (12:40)
--- NOTE | 2017-04-22 14:12 | Progress Note ---
Assessment and Plan Assessment and plan: 56-year-old man who presented with hematemesis 1. GI bleed Continue PPI drip, fup Hg, GI consulted for possible EGD 2. Hypertension Continue medications next 3. Chronic COPD Continue home inhalers 4. Sepsis due to UTI cont abx, fup urine cx History Interval history: He denies any burning on urination and denies abdominal pain, denies any further episodes of hematemesis, actually feels better now. Hospitalist Physical - Physical exam Narrative exam: General: Patient appears well in no distress HEENT: MMM, EOMI cardiac: S1-S2 heard lungs: clear to auscultation, abdomen: soft, nontender, nondistended bowel sounds positive extremities: no edema clubbing or cyanosis Skin: no rash or lesion Neuro: no focal deficit Psych: appropriate behavior and mood, cognition intact - Constitutional Vitals: Temp Pulse Resp BP Pulse Ox 97.5 F L 92 H 20 140/79 98 04/22/17 12:00 04/22/17 12:00 04/22/17 12:00 04/22/17 12:00 04/22/17 12:00 Results - Labs CBC & Chem 7: 04/23/17 07:07 04/23/17 07:07 Labs: Laboratory Last Values WBC 18.3 K/mm3 (4.5-11.0) H 04/21/17 08:31 RBC 3.64 M/mm3 (3.65-5.03) L 04/21/17 08:31 Hgb 10.1 gm/dl (11.8-15.2) L 04/21/17 08:31 Hct 31.7 % (35.5-45.6) L 04/21/17 08:31 MCV 87 fl (84-94) 04/21/17 08:31 MCH 28 pg (28-32) 04/21/17 08:31 MCHC 32 % (32-34) 04/21/17 08:31 RDW 14.6 % (13.2-15.2) 04/21/17 08:31 Plt Count 436 K/mm3 (140-440) 04/21/17 08:31 Lymph % (Auto) 4.3 % (13.4-35.0) L 04/21/17 08:31 [place] % (Auto) 5.7 % (0.0-7.3) 04/21/17 08:31 Eos % (Auto) 3.4 % (0.0-4.3) 04/21/17 08:31 Baso % (Auto) 0.3 % (0.0-1.8) 04/21/17 08:31 Lymph # 0.8 K/mm3 (1.2-5.4) L 04/21/17 08:31 [place] # 1.0 K/mm3 (0.0-0.8) H 04/21/17 08:31 Eos # 0.6 K/mm3 (0.0-0.4) H 04/21/17 08:31 Baso # 0.1 K/mm3 (0.0-0.1) 04/21/17 08:31 Seg Neutrophils % 86.3 % (40.0-70.0) H 04/21/17 08:31 Seg Neutrophils # 15.8 K/mm3 (1.8-7.7) H 04/21/17 08:31 Sodium 137 mmol/L (137-145) 04/21/17 08:31 Potassium 4.1 mmol/L (3.6-5.0) 04/21/17 08:31 Chloride 96.5 mmol/L (98-107) L 04/21/17 08:31 Carbon Dioxide 25 mmol/L (22-30) 04/21/17 08:31 Anion Gap 20 mmol/L 04/21/17 08:31 BUN 15 mg/dL (9-20) 04/21/17 08:31 Creatinine 1.4 mg/dL (0.8-1.5) 04/21/17 08:31 Estimated GFR > 60 ml/min 04/21/17 08:31 BUN/Creatinine Ratio 10.71 % 04/21/17 08:31 Glucose 105 mg/dL (75-100) H 04/21/17 08:31 Lactic Acid 1.50 mmol/L (0.7-2.0) 04/21/17 09:27 Calcium 9.2 mg/dL (8.4-10.2) 04/21/17 08:31 Troponin T < 0.010 ng/mL (0.00-0.029) 04/21/17 14:50 Urine Color Yellow (Yellow) 04/21/17 16:43 Urine Turbidity Slightly-cloudy (Clear) 04/21/17 16:43 Urine pH 5.0 (5.0-7.0) 04/21/17 16:43 Ur Specific [place] 1.008 (1.003-1.030) 04/21/17 16:43 Urine Protein <15 mg/dl mg/dL (Negative) 04/21/17 16:43 Urine Glucose (UA) Neg mg/dL (Negative) 04/21/17 16:43 Urine Ketones Neg mg/dL (Negative) 04/21/17 16:43 Urine Blood Neg (Negative) 04/21/17 16:43 Urine Nitrite Pos (Negative) 04/21/17 16:43 Urine Bilirubin Neg (Negative) 04/21/17 16:43 Urine Urobilinogen < 2.0 mg/dL (<2.0) 04/21/17 16:43 Ur Leukocyte Esterase Lg (Negative) 04/21/17 16:43 Urine WBC (Auto) 69.0 /HPF (0.0-6.0) H 04/21/17 16:43 Urine RBC (Auto) 6.0 /HPF (0.0-6.0) 04/21/17 16:43 U Epithel Cells (Auto) 1.0 /HPF (0-13.0) 04/21/17 16:43 Urine Mucus Few /HPF 04/21/17 16:43
[2017-04-22 14:56] LABS: Hemoglobin 10.1 gm/dl (11.8-15.2); Mean Corpuscular HGB Conc 32 % (32-34); Mean Corpuscular Hemoglobin 28 pg (28-32); Mean Corpuscular Volume 88 fl (84-94); Platelet Count 484 K/mm3 (140-440); Red Blood Count 3.64 M/mm3 (3.65-5.03); Red Cell Distribution Width 14.7 % (13.2-15.2); White Blood Count 13.5 K/mm3 (4.5-11.0)
--- NOTE | 2017-04-22 23:33 | Admit Criteria Form ---
Admission Criteria Documentation: SYSTEMIC OR INFECTIOUS CONDITION Clinical Indications for Admission to Inpatient Care (Place 'X' for any and all applicable criteria): Hospital admission is needed for appropriate care of the patient because of ANY ONE of the following: []I. Hemodynamic instability indicated by ANY ONE of the following(1)(2)(3)(4 )(5): []a. Vital sign abnormality not readily corrected by appropriate treatment within 12 to 24 hours indicated by ANY ONE of the following: []i) Tachycardia that persists despite appropriate treatment []ii) Hypotension that persists despite appropriate treatment []iii) Orthostatic vital sign changes that persist despite appropriate treatment []b. Vital sign abnormality that is severe indicated by ANY ONE of the following: []i. Inadequate perfusion indicated by ANY ONE of the following : []1) Lactic acidosis (greater than 2 mmol/L) []2) New abnormal capillary refill (greater than 3 seconds) []3) Reduced urine output []4) New altered mental status []5) Myocardial Ischemia []ii. Mean arterial pressure [A] less than 60 mm Hg []iii. Mean arterial pressure[A] less than 70 mm Hg after 30 minutes of appropriate treatment (eg, fluid resuscitation) []iv. Sustained heart rate greater than 120 beats per minute in adult []v. IV inotropic or vasopressor medication required to maintain adequate blood pressure or perfusion []II. Systemic or infectious condition causing severe symptoms or findings not responsive to emergency or observation care treatment (as appropriate) indicated by ANY ONE of the following: []a. Cardiac arrhythmias of immediate concern(1)(2)(3) []b. Severe endocrine disorder (eg, thyrotoxicosis, adrenal insufficiency)(4)(5) []c. Seizures (eg, new or recurrent)(6) []d. New-onset end organ failure or dysfunction as indicated by ANY ONE of the following: []i. Acute unexplained hypoxemia (eg, not from lung infection or chronic disease)(7)(8)(9) []ii. Acute renal failure as indicated by new onset of ANY ONE of the following(10)(11)(12)(13)(14): []1) 3-fold rise in serum creatinine from baseline []2) Serum creatinine greater than 4 mg/dL (354 micromoles/L) with acute rise greater than 0.5 mg/dL (44.2 micromoles/L) []3) Reduction of more than 75% in estimated glomerular filtration rate from baseline. []4) Estimated glomerular filtration rate less than 35 mL/min/1.73m2 ( 0.59 mL/sec/1.73m2) in child younger than 18 years. []5) Cessation of urine output indicated by ALL of the following: []A. Adequate volume status []B. Inadequate urine output as indicated by ANY ONE of the following: []a. Urine output less than 0.3 mL/kg/hr for 24 hours []b. Anuria (urine output less than 0.1 mL/kg/hr) for 12 hours []iii. Acute mental status changes(15) []iv. Acute hepatic failure (eg, plasma bilirubin greater than 4 mg/ dL (68 micromoles/L), new INR greater than 2.0)(16)(17) []e. Unmanageable nausea and vomiting(18) []f. New-onset or uncontrolled central diabetes insipidus(19)(20) []g. Clinically significant dehydration(18)(21) []h. Hypoglycemia(22) []i. Acidosis (pH less than 7.35) or alkalosis (pH greater than 7.45)( 22)(23) []j. Toxic drug level that indicates need for specific monitoring or treatment(24)(25) []k. Severe electrolyte abnormalities indicated by ALL of the following( 1)(2)(3): []i. Electrolytes and associated findings are not as expected for patient baseline or acceptable treatment effects. []ii. Severe abnormalities indicated by ANY ONE of the following: []1) Sodium less than 130 mEq/L (mmol/L) (new) []2) Sodium less than 135 mEq/L (mmol/L) with ANY ONE of the following: []A. Uncorrectable (to near normal or chronic baseline) after trial of outpatient and emergency treatment []B. Altered mental status []C. Seizures []D. Severe medical etiology requiring inpatient management (eg , heart failure, hypovolemia) []3) Sodium greater than 155 mEq/L (mmol/L) []4) Sodium greater than 150 mEq/L (mmol/L) with ANY ONE of the following: []A. Uncorrectable (to near normal or chronic baseline) with outpatient and emergency treatment []B. Altered mental status []C. Seizures []D. Severe medical etiology (eg, hypovolemia, diabetes insipidus) []5) Potassium less than 2.5 mEq/L (mmol/L) despite outpatient and emergency treatment []6) Potassium less than 3 mEq/L (mmol/L) with ANY ONE of the following : []A. Weakness []B. Cardiac abnormality (eg, arrhythmia, conduction disturbance ) []C. Cardiac ischemia []D. Ileus []E. Ongoing medical cause requiring inpatient management (eg, acute renal wasting or SIADH) []F. Other severe symptoms []7) Potassium greater than 6.5 mEq/L (mmol/L) []8) Potassium greater than 5 mEq/L (mmol/L) with ANY ONE of the following: []A. Uncorrectable (to near normal or chronic baseline) with outpatient and emergency treatment []B. Severe ECG findings[A] []C. Acute worsening of renal failure (creatinine greater than 2.5 mg/dL (221 micromoles/L) or significant elevation for age and size) []D. Severe weakness []E. Severe medical etiology (eg, hemolysis, infection, drug overdose) []9) Calcium less than 7 mg/dL (1.75 mmol/L) despite outpatient and emergency treatment(5) []10) Calcium less than 8 mg/dL (2 mmol/L) with significant symptoms or findings (eg, altered mental status, muscle spasms, seizures, breathing difficulty, cardiac abnormality (eg, arrhythmia or conduction disturbance))(5) []11) Calcium greater than 14 mg/dL (3.5 mmol/L)(5) []12) Calcium greater than 12 mg/dL (3 mmol/L) with ANY ONE of the following(5): []A. Uncorrectable (to near normal or chronic baseline) with outpatient and emergency treatment []B. Significant dehydration or hypovolemia as indicated by ALL of the following(3)(6)(7): []a. Not resolved with initial treatments []b. Clinically significant dehydration as indicated by ANY ONE of the following: [](1) Vomiting refractory to outpatient treatment (ie, precluding oral rehydration) [](2) Inability to drink [](3) Hypernatremia or other electrolyte abnormality unable to be corrected with outpatient and emergency treatment [](4) Failure to remain hydrated with outpatient therapy [](5) Reduced urine output [](6) Hypotension [](7) Serious cause for dehydration requiring acute hospitalization ( eg, bowel obstruction, increased intracranial pressure, infectious cause) [](8) Child with ANY ONE of the following(8): [](i) Severe abdominal tenderness [](ii) Adequate care not available at home [](iii) Severe dehydration (greater than 9% loss of body weight) []C. Significant symptoms or findings (eg, altered mental status , cardiac abnormality (eg, arrhythmia, conduction disturbance), malignant etiology requiring inpatient treatment) []13) Phosphorus less than 1 mg/dL (0.32 mmol/L) []14) Phosphorus less than 1.5 mg/dL (0.48 mmol/L) with ANY ONE of the following: []A. Patient unresponsive to outpatient and emergency treatment []B. Significant symptoms or findings (eg, weakness, altered mental status, breathing difficulty, seizures, rhabdomyolysis) []15) Phosphorus greater than 10 mg/dL (3.2 mmol/L) []16) Phosphorus greater than 4.5 mg/dL (1.45 mmol/L) (new) with ANY ONE of the following: []A. Severe medical etiology (eg, crush injury, acute renal failure) []B. Associated hypocalcemia with significant findings (eg, neurologic symptoms, altered mental status, muscle spasms, seizures, breathing difficulty, cardiac abnormality (eg, arrhythmia, conduction disturbance)) []16) Magnesium less than 1 mg/dL (0.41 mmol/L) []17) Magnesium less than 1.5 mg/dL (0.62 mmol/L) with ANY ONE of the following: []A. Patient unresponsive to outpatient and emergency treatment []B. Associated hypocalcemia with significant findings (eg, altered mental status, muscle spasms, seizures, breathing difficulty, cardiac abnormality (eg, arrhythmia, conduction disturbance)) []C. Associated hypokalemia (potassium less than 3 mEq/L (mmol/L )) with risk of arrhythmia []18) Magnesium greater than 4 mEq/L (2 mmol/L) []19) Magnesium greater than 2.5 mEq/L (1.25 mmol/L) with significant symptoms or findings (eg, weakness, altered mental status, cardiac abnormality (eg, arrhythmia, conduction disturbance), breathing difficulty, severe medical etiology (eg, renal failure, hypovolemia)) []20) Uric acid greater than 20 mg/dL (1190 micromoles/L)(9) []21) Uric acid greater than 8 mg/dL (476 micromoles/L) with significant symptoms or findings of tumor lysis syndrome (eg, creatinine greater than 1.5 times upper limit of normal, cardiac abnormality (eg , arrhythmia, conduction disturbance), seizure)(9) []III. High fever or other high-risk infection situation as indicated by ANY ONE of the following(26)(27)(28): []a. Outpatient and observation care antimicrobial treatment unavailable, not effective, or not appropriate []b. Documented bacteremia []c. Temperature greater than 104.9 degrees F (40.5 degrees C) (oral) []d. Temperature greater than 103.1 degrees F (39.5 degrees C) (oral) or less than 96.8 degrees F (36 degrees C) (rectal) that does not respond to emergency treatment and observation care []IV. High-risk febrile neutropenia[A] as indicated by ANY ONE of the following(29)(30)(31)(32): []a. Profound neutropenia[B] anticipated to extend for more than 7 days []b. Hemodynamic instability []c. Hypoxemia []d. Tachypnea []e. Altered mental status []f. New-onset abdominal pain []g. New-onset vomiting or diarrhea []h. Oral or gastrointestinal mucositis that interferes with swallowing or causes severe diarrhea []i. Focal infection (eg, cellulitis, pneumonia, central line or catheter infection, perirectal abscess) []j. Renal insufficiency (eg, GFR of less than 30 mL/min/1.73m2 (0.5 mL/sec /1.73m2)). []k. Severe liver dysfunction (transaminase levels greater than 5 times normal) []l. Platelet count less than 50,000/mm3 (50 x109/L)(33) []m. Leukemia or lymphoma induction therapy []n. Leukemia not in complete remission or with evidence of disease progression []o. Bone marrow transplant patient []p. Alemtuzumab being used for therapy []q. [employer] Supportive Care in Cancer (MASCC) Risk Index score of less than 21[C](33)(35). []V. Isolation required (eg, tuberculosis that requires isolation, Ebola infection)[D](36)(37)(38)(39)(40) []. Gangrene that requires treatment beyond emergency or observation level care(41)(42) []VII. Antitoxin administration and ongoing observation required (eg, tetanus, botulism)(43)(44) []. Suspected infection with rapid progression or severe symptoms as indicated by ANY ONE of the following(45): []a. Streptococcal or staphylococcal toxic shock(46) []b. Diphtheria(47) []c. Hantavirus(48) []d. Severe acute respiratory syndrome(8)(49) []e. Anthrax(50) []f. Ebola[D](36)(37)(38) []g. Necrotizing soft tissue infection(41)(42) []h. Plague(50) []i. Other suspected infection that requires care beyond emergency or observation level care []VII. Severe adverse drug or systemic toxin reaction as indicated by ANY ONE of the following(24): []a. Serotonin syndrome(51)(52) []b. Neuroleptic malignant syndrome(51)(52) []c. Cholinergic syndrome with severe symptoms (eg, bronchorrhea, weakness , mental status changes, seizures)(53) []d. Anticholinergic syndrome []e. Sympathetic syndrome with severe symptoms (eg, seizures, mental status changes, cardiac dysrhythmias) []f. Other severe adverse drug or systemic toxin reaction that remains after emergency or observation level care (as appropriate) []VIII. Allergic reaction with severe symptoms (not responsive to emergency or observation care treatment as appropriate), including ANY ONE of the following(54): []a. Airway edema (pharyngeal, epiglottic, or laryngeal edema) []b. Stridor []c. Respiratory failure []d. Bronchospasm []e. Hypotension []IX. Environmental emergency (not responsive to emergency or observation care treatment as appropriate) as indicated by ANY ONE of the following(55)(56): []a. Hyperthermia []b. Heat stroke []c. Heat exhaustion []d. Hypothermia (temperature less than 95 degrees F (35 degrees C) rectal) (57) []e. Electrocution(58) []X. Complications of transplanted organ (ie, not covered elsewhere)[E] indicated by ANY ONE of the following(59): []a. Acute graft rejection (or graft vs. host disease)[F] requiring inpatient management (eg, intravenous immunosuppression)(60)(61)(62)( 63) []b. Acute failure of transplanted organ necessitating inpatient care (eg, cannot be managed in other setting) []c. Infection requiring inpatient management (eg, Hemodynamic instability, need for intravenous antimicrobial treatment)(64)(65) []d. Other complication of transplanted organ requiring inpatient management [X]XI. Systemic or Infectious Condition condition, symptom, or finding for which emergency and observation care have failed or are not considered appropriate. See General Criteria: Observation Care, General Admission Criteria or Pediatric General Admission Criteria guideline as appropriate. The original [facility] content created by [facility] has been revised. The portions of the content which have been revised are identified through the use of italic text or in bold and [facility] has neither reviewed nor approved the modified material. All other unmodified content is copyright [facility]. Please see references footnoted in the original [facility] edition 2016 Admission Criteria Met: Yes
[2017-04-23 08:08] LABS: Basophils % (Auto) 0.5 % (0.0-1.8); Eosinophils % (Auto) 10.8 % (0.0-4.3); Hematocrit 30.2 % (35.5-45.6); Mean Corpuscular HGB Conc 33 % (32-34); Mean Corpuscular Hemoglobin 29 pg (28-32); Mean Corpuscular Volume 86 fl (84-94); Platelet Count 458 K/mm3 (140-440); White Blood Count 8.1 K/mm3 (4.5-11.0)
--- NOTE | 2017-04-23 08:18 | Discharge Summary ---
Providers - Providers Date of Admission: 04/21/17 16:34 Attending physician: NATE GUDINO MD 04/21/17 22:28 Consult to Physician [CONS] Routine Consulting Provider: REKHA BARAJAS Reason For Exam: Hematemesis Primary care physician: NICHOLAS LARSON MD Hospitalization Condition: Stable Hospital course: 56-year-old man who presented with nausea and vomiting a small amount of blood in his vomit.He was seen by GI, he received a PPI drip and was in hospital. Bleeding resolved, was most likely a Pepper-Hodges tear due to prolonged vomiting. He was noted to have a stable hemoglobin, and no further episodes of hematemesis. He will follow up with GI as an outpatient in clinic for possible elective EGD. He was continued on his blood pressure medications, continued on his home inhalers for chronic COPD. He was found to have sepsis due to UTI for which was treated with appropriate antibiotics. Discharge diagnoses Sepsis due to UTI GI bleed Discharge we'll nausea vomiting Hypertension Chronic COPD Disposition: DC/TX- HOME UNDER HOME [facility] Time spent for discharge: 35 minutes Core Measure Documentation - Palliative Care Palliative Care/ Comfort Measures: Not Applicable - Core Measures Any of the following diagnoses?: none Exam - Constitutional Vitals: Temp Pulse Resp BP Pulse Ox 98.0 F 87 18 126/82 98 04/23/17 05:00 04/23/17 05:00 04/23/17 05:00 04/23/17 05:00 04/23/17 05:00 General appearance: Present: no acute distress, well-nourished - EENT Eyes: Present: PERRL ENT: hearing intact, clear oral mucosa - Neck Neck: Present: supple, normal ROM - Respiratory Respiratory effort: normal Respiratory: bilateral: CTA - Cardiovascular Heart Sounds: Present: S1 & S2. Absent: rub, click - Extremities Extremities: pulses symmetrical, No edema Peripheral Pulses: within normal limits - Abdominal General gastrointestinal: Present: soft, non-tender, non-distended, normal bowel sounds Male genitourinary: Present: normal - Integumentary Integumentary: Present: clear, warm, dry - Musculoskeletal Musculoskeletal: gait normal, strength equal bilaterally - Psychiatric Psychiatric: appropriate mood/affect, intact judgment & insight - Neurologic Neurologic: CNII-XII intact, moves all extremities Plan Follow up with: PRIMARY CARE, [Primary Care Provider] - 3-5 Days ALMAZ MENDOZA MD [Staff Physician] - 7 Days Prescriptions: Nitrofurantoin Macrocrysta(Nf) [Macrodantin CAP] 50 mg PO QID #30 capsule Pantoprazole [Protonix] 40 mg PO QDAY #30 tablet
[2017-04-23 08:23] LABS: Anion Gap 17 mmol/L; BUN/Creatinine Ratio 11.81; Blood Urea Nitrogen 13 mg/dL (9-20); Calcium 8.6 mg/dL (8.4-10.2); Carbon Dioxide 24 mmol/L (22-30); Chloride 101.7 mmol/L (98-107); Glucose 99 mg/dL (75-100); Potassium 4.4 mmol/L (3.6-5.0); Sodium 138 mmol/L (137-145)
--- NOTE | 2017-04-23 10:14 | Event Note ---
Date: 04/23/17 Patient was admitted on 04/21/2017 with hematemesis but GI consult was never called to our group. H&H has remained stable since admission, with no signs of active bleeding or any further episode of hematemesis. Spoke with silas Alvares to d/c pt on PPI and have pt follow up in our office as an outpatient.
[2017-04-23 11:25] VITALS: BP 127/74
[2017-04-23] MEDS: ROCEPHIN/NS 2 GM/100 ML 2 GM/100 ML BAG IV SCH (11:37)
== END 2017-04-23 16:31 | disposition home health service (06) | DRG 872 ==
LOC: ED 08:07 → 4A 16:34
PROVIDERS: ADMIT Internal Medicine; ATTEND Internal Medicine
DX: A41.9 Sepsis, unspecified organism (principal); N39.0 Urinary tract infection, site not specified; I10 Essential (primary) hypertension; J44.9 Chronic obstructive pulmonary disease, unspecified; K21.9 Gastro-esophageal reflux disease without esophagitis; I25.10 Atherosclerotic heart disease of native coronary artery without angina pectoris; K92.0 Hematemesis; Z95.5 Presence of coronary angioplasty implant and graft; Z82.49 Family history of ischemic heart disease and other diseases of the circulatory system
CPT/HCPCS: 36415; 71020; 80048; 81001; 82140; 84484; 85025; 85027; 87040; 87076; 87086; 87186; 90686; 90732; 93005; 93010; 94640; 94760; 96365; 96375; 99285; C9113; J0696; J1956; J7030

== ENCOUNTER 2017-08-28 12:48 | Emergency (ER) | payer MEDICAID ==
[2017-08-28 13:01] VITALS: BP 141/80
--- NOTE | 2017-08-28 15:09 | Emergency Department Report ---
- General Chief Complaint: Upper Respiratory Infection Stated Complaint: GENERAL EDWARD ACHES Time Seen by Provider: 08/28/17 14:04 Source: patient Mode of arrival: Ambulatory Limitations: No Limitations - History of Present Illness Initial Comments: This is a 56-year-old male nontoxic, well nourished in appearance, no acute signs of distress presents to the ED complaining of body aches, rhinorrhea, productive cough, facial sinus pain 2 weeks. Patient describes productive cough as yellow/white sputum production. Patient denies any recent travels or long car ride. Denies calf pain or tenderness. Denies chest pain, shortness of breath, fever, chills, headache, nausea, vomiting, stiff neck, headache, wheezing, abdominal pain numbness or tingling. Patient denies any allergies. Past medical history includes asthma, COPD, and hypertension. MD Complaint: cough, rhinorrhea, sinus pain -: Gradual, week(s) (2) Severity: mild Severity scale (0 -10): 8 Quality: aching Consistency: constant Improves With: nothing Worsens With: nothing Associated Symptoms: rhinorrhea, nasal congestion, cough. denies: fever, chills , myalgias, diaphoresis, headache, sore throat, stiff neck, chest pain, shortness of breath, abdominal pain, nausea, vomiting, diarrhea, dysuria, rash, confusion, right sweats, weight loss, epistaxis, hoarseness, ear pain Treatments Prior to Arrival: none - Related Data Home Medications Medication Instructions Recorded Confirmed Last Taken Albuterol Sulfate [Proair 2 puff PO Q6H 02/15/17 04/21/17 Unknown Respiclick] Aspirin 81 mg PO DAILY 02/15/17 04/21/17 Unknown Metoprolol Succinate 25 mg PO BID 02/15/17 04/21/17 Unknown Multivit-Min/FA/Lycopen/Lutein 1 each PO DAILY 02/15/17 04/21/17 Unknown [Centrum Silver Tablet] Ticagrelor [Brilinta] 90 mg PO BID 02/15/17 04/21/17 Unknown Previous Rx's Medication Instructions Recorded Last Taken Type Albuterol Sulfate [Albuterol 0.63% 0.63 mg IH Q4HR PRN #2 ml 03/22/17 Unknown Rx NEBS] Albuterol Sulfate [Proair 90 mcg IH Q4HR PRN #2 aer.pow.ba 03/22/17 Unknown Rx Respiclick] Ipratropium Yeaddiss [Atrovent Hfa] 12.9 gm IH Q4HR #2 hfa.aer.ad 03/22/17 Unknown Rx Ipratropium [Atrovent NEB] 0.5 mg IH Q4HR #2 ml 03/22/17 Unknown Rx predniSONE [Deltasone] 40 mg PO QDAY #8 tab 03/22/17 Unknown Rx Methocarbamol [Robaxin TAB] 750 mg PO Q8H PRN #20 tablet 04/13/17 Unknown Rx traMADol [Ultram 50 MG tab] 50 mg PO Q4HR PRN #20 tablet 04/13/17 Unknown Rx Nitrofurantoin Macrocrysta(Nf) 50 mg PO QID #30 capsule 04/23/17 Unknown Rx [Macrodantin CAP] Pantoprazole [Protonix] 40 mg PO QDAY #30 tablet 04/23/17 Unknown Rx Azithromycin [Zithromax Z-CORAZON] 250 mg PO DAILY #6 tablet 08/28/17 Unknown Rx Benzonatate [Tessalon Perle] 100 mg PO Q6H #20 capsule 08/28/17 Unknown Rx Allergies Allergy/AdvReac Type Severity Reaction Status Date / Time No Known Allergies Allergy Verified 03/07/16 11:53 ED Review of Systems ROS: Stated complaint: GENERAL EDWARD ACHES Other details as noted in HPI Constitutional: denies: chills, fever Eyes: denies: eye pain, eye discharge, vision change ENT: denies: ear pain, throat pain Respiratory: denies: cough, shortness of breath, wheezing Cardiovascular: denies: chest pain, palpitations Endocrine: no symptoms reported Gastrointestinal: denies: abdominal pain, nausea, diarrhea Genitourinary: denies: urgency, dysuria Musculoskeletal: denies: back pain, joint swelling, arthralgia Skin: denies: rash, lesions Neurological: denies: headache, weakness, paresthesias Psychiatric: denies: anxiety, depression Hematological/Lymphatic: denies: easy bleeding, easy bruising ED Past Medical Hx - Past Medical History Previous Medical History?: Yes Hx Hypertension: Yes Hx Congestive Heart Failure: No Hx Diabetes: No Hx Asthma: Yes Hx COPD: Yes Hx HIV: No - Surgical History Past Surgical History?: Yes Additional Surgical History: Cardiac Stents - Social History Smoking Status: Former Smoker Substance Use Type: None - Medications Home Medications: Home Medications Medication Instructions Recorded Confirmed Last Taken Type Albuterol Sulfate [Proair 2 puff PO Q6H 02/15/17 04/21/17 Unknown History Respiclick] Aspirin 81 mg PO DAILY 02/15/17 04/21/17 Unknown History Metoprolol Succinate 25 mg PO BID 02/15/17 04/21/17 Unknown History Multivit-Min/FA/Lycopen/Lutein 1 each PO DAILY 02/15/17 04/21/17 Unknown History [Centrum Silver Tablet] Ticagrelor [Brilinta] 90 mg PO BID 02/15/17 04/21/17 Unknown History Albuterol Sulfate [Albuterol 0.63% 0.63 mg IH Q4HR PRN #2 ml 03/22/17 04/21/17 Unknown Rx NEBS] Albuterol Sulfate [Proair 90 mcg IH Q4HR PRN #2 aer.pow.ba 03/22/17 04/21/17 Unknown Rx Respiclick] Ipratropium Yeaddiss [Atrovent Hfa] 12.9 gm IH Q4HR #2 hfa.aer.ad 03/22/17 Unknown Rx Ipratropium [Atrovent NEB] 0.5 mg IH Q4HR #2 ml 03/22/17 04/21/17 Unknown Rx predniSONE [Deltasone] 40 mg PO QDAY #8 tab 03/22/17 04/21/17 Unknown Rx Methocarbamol [Robaxin TAB] 750 mg PO Q8H PRN #20 tablet 04/13/17 04/21/17 Unknown Rx traMADol [Ultram 50 MG tab] 50 mg PO Q4HR PRN #20 tablet 04/13/17 04/21/17 Unknown Rx Nitrofurantoin Macrocrysta(Nf) 50 mg PO QID #30 capsule 04/23/17 Unknown Rx [Macrodantin CAP] Pantoprazole [Protonix] 40 mg PO QDAY #30 tablet 04/23/17 Unknown Rx Azithromycin [Zithromax Z-CORAZON] 250 mg PO DAILY #6 tablet 08/28/17 Unknown Rx Benzonatate [Tessalon Perle] 100 mg PO Q6H #20 capsule 10/11/17 Unknown Rx ED Physical Exam - General Limitations: No Limitations General appearance: alert, in no apparent distress - Head Head exam: Present: atraumatic, normocephalic, normal inspection - Eye Eye exam: Present: normal appearance, PERRL, EOMI. Absent: scleral icterus, conjunctival injection, nystagmus, periorbital swelling, periorbital tenderness Pupils: Present: normal accommodation - ENT ENT exam: Present: normal exam, normal orophraynx, mucous membranes moist, TM's normal bilaterally, normal external ear exam - Neck Neck exam: Present: normal inspection, full ROM. Absent: tenderness, meningismus, lymphadenopathy, thyromegaly - Respiratory Respiratory exam: Present: normal lung sounds bilaterally. Absent: respiratory distress, wheezes, rales, rhonchi, stridor - Cardiovascular Cardiovascular Exam: Present: regular rate, normal rhythm, normal heart sounds. Absent: bradycardia, tachycardia, irregular rhythm, systolic murmur, diastolic murmur, rubs, gallop - GI/Abdominal GI/Abdominal exam: Present: soft, normal bowel sounds. Absent: distended, tenderness, guarding, rebound, rigid, diminished bowel sounds - Rectal Rectal exam: Present: deferred - Extremities Exam Extremities exam: Present: normal inspection, full ROM, normal capillary refill. Absent: tenderness, pedal edema, joint swelling, calf tenderness - Back Exam Back exam: Present: normal inspection, full ROM. Absent: tenderness, CVA tenderness (R), CVA tenderness (L), muscle spasm, paraspinal tenderness, vertebral tenderness, rash noted - Neurological Exam Neurological exam: Present: alert, oriented X3, CN II-XII intact, normal gait, reflexes normal - Psychiatric Psychiatric exam: Present: normal affect, normal mood - Skin Skin exam: Present: warm, dry, intact, normal color. Absent: rash - Other Other exam information: Frontal sinus tenderness upon palpation. Positive clear rhinorrhea. ED Course Vital Signs 08/28/17 12:58 Temperature 98.9 F Pulse Rate 71 Respiratory 18 Rate Blood Pressure 141/80 O2 Sat by Pulse 94 Oximetry - Reevaluation(s) Reevaluation #1: 08/28/17 15:16 Patient is speaking in full sentences with no signs of distress noted. - Consultations Consultation #1: 08/28/17 16:46 Dr. Arzate has been consulted about patient history, physical exam, and CXR results and agrees to the plan of care with d/c and f/u. ED Medical Decision Making - Medical Decision Making This is a 56-year-old male that presents with sinusitis. Patient was examined by myself and patient is stable. Patient state his cough has subsided after receiving Tessalon Perle ED by stated feeling a lot better. X-ray has been obtained and dictated by radiologist with suspect right lower lobe PNA. Patient received Decadron 10 mg IM the ED as well as a dose of azithromycin 500 mg by mouth. Patient has been discussed with Dr. Arzate and agrees to plan of care with discharge and follow-up. PSA and CURB65: no admission. Patient stated he has a follow-up appointment with his tooling inspector tomorrow. Patient was instructed to follow-up with a primary care doctor in 24 hours or if symptoms worsen and continue return to emergency room as soon as possible possible. Patient is hemodynamically stable with stable vital signs. Patient states he is feeling better. At time time of discharge, the patient does not seem toxic or ill in appearance. No acute signs of distress noted. Patient agrees to discharge treatment plan of care. No further questions noted by the patient. Critical care attestation.: If time is entered above; I have spent that time in minutes in the direct care of this critically ill patient, excluding procedure time. ED Disposition Clinical Impression: Sinusitis Qualifiers: Sinusitis location: frontal Chronicity: unspecified Qualified Code(s): J32.1 - Chronic frontal sinusitis PNA (pneumonia) Qualifiers: Pneumonia type: due to unspecified organism Laterality: right Lung location: lower lobe of lung Qualified Code(s): J18.1 - Lobar pneumonia, unspecified organism Disposition: DC-01 TO HOME OR SELFCARE Is pt being admited?: No Does the pt Need Aspirin: No Condition: Stable Instructions: Benzonatate (By mouth), Sinusitis (ED), Bacterial Pneumonia (ED) , Azithromycin (By mouth) Additional Instructions: As you instructed, he have appointment with your tooling inspector tomorrow to please make sure that he keep the appointment to follow-up with the tooling inspector. Follow-up with your primary care doctor 24 hours or if symptoms worsen and continue return to emergency room as soon as possible possible. Prescriptions: Azithromycin [Zithromax Z-CORAZON] 250 mg PO DAILY #6 tablet Benzonatate [Tessalon Perle] 100 mg PO Q6H #20 capsule Referrals: PRIMARY CAREMD [Primary Care Provider] - 3-5 Days JONATHAN RICHARDS MD [Staff Physician] - 3-5 Days [facility] [Outside] - 3-5 Days [facility] [Outside] - 3-5 Days
[2017-08-28] MEDS ORDERED: TESSALON PERLES PO ONE (15:17)
--- NOTE | 2017-08-28 16:31 | XRay Report ---
XRAY CHEST TWO VIEWS: 08/28/17 12:48:00 CLINICAL: Cough and wheezing. COMPARISON: 04/21/17 FINDINGS: Normal heart and pulmonary vasculature. New patchy opacities in the posterior right lower lobe with partial silhouetting of the right hemidiaphragm on the lateral view. The lungs are normally expanded and are otherwise clear.The bones and soft tissues are unremarkable. IMPRESSION: Suspect right lower lobe pneumonia without consolidation.
[2017-08-28] MEDS ORDERED: DECADRON IM ONE (16:49)
[2017-08-28] MEDS ORDERED: ZITHROMAX PO ONE (16:50)
== END 2017-08-28 17:20 | disposition home or self-care (01) ==
LOC: ED 12:48
DX: J32.1 Chronic frontal sinusitis (principal); J18.1 Lobar pneumonia, unspecified organism; I10 Essential (primary) hypertension; J45.909 Unspecified asthma, uncomplicated; J44.9 Chronic obstructive pulmonary disease, unspecified; Z87.891 Personal history of nicotine dependence; Z79.82 Long term (current) use of aspirin
CPT/HCPCS: 71020; 87400; 96372; 99283; J1100

== ENCOUNTER 2017-10-11 08:46 | Emergency (ER) | payer MEDICAID ==
--- NOTE | 2017-10-11 09:30 | Emergency Department Report ---
ED General Adult HPI - General Chief complaint: Dyspnea/Respdistress Stated complaint: FABRICE Time Seen by Provider: 10/11/17 09:17 Source: patient, EMS (ems notes not available at time of chart dictation), RN notes reviewed, old records reviewed Mode of arrival: Stretcher Limitations: No Limitations - History of Present Illness Initial comments: This is a 57-year-old male. I have previously evaluated this patient. Past medical history includes heart disease, 2 stents, COPD, on 2 L of home oxygen, hypertension and high cholesterol. Patient presents to the ER with central chest pain, cough, wheezing and shortness of breath. His symptoms have been present since yesterday. They are constant. The pain does not radiate anywhere. It is aching in nature. There is no vomiting or diaphoresis. There is no leg pain. There is no leg swelling. Positive cough. Positive mucous production. Patient recently admitted to this hospital in February of this year, had a negative nuclear stress test. Patient decayed no pulmonary embolus or DVT risk factors. Patient has been previously evaluated by me for similar symptoms. -: Gradual, days(s) Location: chest Radiation: non-radiation Quality: aching Consistency: intermittent Improves with: rest Worsens with: movement Associated Symptoms: chest pain, cough, shortness of breath - Related Data Home Medications Medication Instructions Recorded Confirmed Last Taken Albuterol Sulfate [Proair 2 puff PO Q6H 02/15/17 04/21/17 Unknown Respiclick] Aspirin 81 mg PO DAILY 02/15/17 04/21/17 Unknown Metoprolol Succinate 25 mg PO BID 02/15/17 04/21/17 Unknown Multivit-Min/FA/Lycopen/Lutein 1 each PO DAILY 02/15/17 04/21/17 Unknown [Centrum Silver Tablet] Ticagrelor [Brilinta] 90 mg PO BID 02/15/17 04/21/17 Unknown Previous Rx's Medication Instructions Recorded Last Taken Type Albuterol Sulfate [Albuterol 0.63% 0.63 mg IH Q4HR PRN #2 ml 03/22/17 Unknown Rx NEBS] Albuterol Sulfate [Proair 90 mcg IH Q4HR PRN #2 aer.pow.ba 03/22/17 Unknown Rx Respiclick] Ipratropium [place] [Atrovent Hfa] 12.9 gm IH Q4HR #2 hfa.aer.ad 03/22/17 Unknown Rx Ipratropium [Atrovent NEB] 0.5 mg IH Q4HR #2 ml 03/22/17 Unknown Rx predniSONE [Deltasone] 40 mg PO QDAY #8 tab 03/22/17 Unknown Rx Methocarbamol [Robaxin TAB] 750 mg PO Q8H PRN #20 tablet 04/13/17 Unknown Rx traMADol [Ultram 50 MG tab] 50 mg PO Q4HR PRN #20 tablet 04/13/17 Unknown Rx Nitrofurantoin Macrocrysta(Nf) 50 mg PO QID #30 capsule 04/23/17 Unknown Rx [Macrodantin CAP] Pantoprazole [Protonix] 40 mg PO QDAY #30 tablet 04/23/17 Unknown Rx Azithromycin [Zithromax Z-CORAZON] 250 mg PO DAILY #6 tablet 08/28/17 Unknown Rx Benzonatate [Tessalon Perle] 100 mg PO Q6H #20 capsule 08/28/17 Unknown Rx Albuterol Sulfate [Albuterol 0.63% 0.63 mg IH Q4HR PRN #2 ml 10/11/17 Unknown Rx NEBS] Albuterol Sulfate [Proair 90 mcg IH Q4HR PRN #2 aer.pow.ba 10/11/17 Unknown Rx Respiclick] Aspirin [Aspirin BABY CHEW TAB] 81 mg PO QDAY #30 tab.chew 10/11/17 Unknown Rx Ipratropium [place] [Atrovent Hfa] 12.9 gm IH Q4HR #2 hfa.aer.ad 10/11/17 Unknown Rx Ipratropium [Atrovent NEB] 0.5 mg IH Q4HR #2 ml 10/11/17 Unknown Rx Levofloxacin [Levaquin TAB] 500 mg PO QDAY #4 tablet 10/11/17 Unknown Rx predniSONE [Deltasone] 40 mg PO QDAY #8 tab 10/11/17 Unknown Rx Allergies Allergy/AdvReac Type Severity Reaction Status Date / Time No Known Allergies Allergy Verified 03/07/16 11:53 ED Review of Systems ROS: Stated complaint: FABRICE Other details as noted in HPI Constitutional: malaise ENT: congestion Respiratory: shortness of breath, wheezing Cardiovascular: chest pain Gastrointestinal: denies: vomiting Genitourinary: denies: dysuria, testicular pain Neurological: weakness Psychiatric: as per HPI ED Past Medical Hx - Past Medical History Hx Hypertension: Yes Hx Congestive Heart Failure: No Hx Diabetes: No Hx Asthma: Yes Hx COPD: Yes Hx HIV: No - Surgical History Additional Surgical History: Cardiac Stents - Social History Smoking Status: Former Smoker - Medications Home Medications: Home Medications Medication Instructions Recorded Confirmed Last Taken Type Albuterol Sulfate [Proair 2 puff PO Q6H 02/15/17 04/21/17 Unknown History Respiclick] Aspirin 81 mg PO DAILY 02/15/17 04/21/17 Unknown History Metoprolol Succinate 25 mg PO BID 02/15/17 04/21/17 Unknown History Multivit-Min/FA/Lycopen/Lutein 1 each PO DAILY 02/15/17 04/21/17 Unknown History [Centrum Silver Tablet] Ticagrelor [Brilinta] 90 mg PO BID 02/15/17 04/21/17 Unknown History Albuterol Sulfate [Albuterol 0.63% 0.63 mg IH Q4HR PRN #2 ml 03/22/17 04/21/17 Unknown Rx NEBS] Albuterol Sulfate [Proair 90 mcg IH Q4HR PRN #2 aer.pow.ba 03/22/17 04/21/17 Unknown Rx Respiclick] Ipratropium [place] [Atrovent Hfa] 12.9 gm IH Q4HR #2 hfa.aer.ad 03/22/17 Unknown Rx Ipratropium [Atrovent NEB] 0.5 mg IH Q4HR #2 ml 03/22/17 04/21/17 Unknown Rx predniSONE [Deltasone] 40 mg PO QDAY #8 tab 03/22/17 04/21/17 Unknown Rx Methocarbamol [Robaxin TAB] 750 mg PO Q8H PRN #20 tablet 04/13/17 04/21/17 Unknown Rx traMADol [Ultram 50 MG tab] 50 mg PO Q4HR PRN #20 tablet 04/13/17 04/21/17 Unknown Rx Nitrofurantoin Macrocrysta(Nf) 50 mg PO QID #30 capsule 04/23/17 Unknown Rx [Macrodantin CAP] Pantoprazole [Protonix] 40 mg PO QDAY #30 tablet 04/23/17 Unknown Rx Azithromycin [Zithromax Z-CORAZON] 250 mg PO DAILY #6 tablet 08/28/17 Unknown Rx Benzonatate [Tessalon Perle] 100 mg PO Q6H #20 capsule 08/28/17 Unknown Rx Albuterol Sulfate [Albuterol 0.63% 0.63 mg IH Q4HR PRN #2 ml 10/11/17 Unknown Rx NEBS] Albuterol Sulfate [Proair 90 mcg IH Q4HR PRN #2 aer.pow.ba 10/11/17 Unknown Rx Respiclick] Aspirin [Aspirin BABY CHEW TAB] 81 mg PO QDAY #30 tab.chew 10/11/17 Unknown Rx Ipratropium [place] [Atrovent Hfa] 12.9 gm IH Q4HR #2 hfa.aer.ad 10/11/17 Unknown Rx Ipratropium [Atrovent NEB] 0.5 mg IH Q4HR #2 ml 10/11/17 Unknown Rx Levofloxacin [Levaquin TAB] 500 mg PO QDAY #4 tablet 10/11/17 Unknown Rx predniSONE [Deltasone] 40 mg PO QDAY #8 tab 10/11/17 Unknown Rx ED Physical Exam - General Limitations: No Limitations General appearance: alert, in no apparent distress - Head Head exam: Present: atraumatic, normocephalic - Eye Eye exam: Present: normal appearance - ENT ENT exam: Present: normal exam, normal orophraynx, mucous membranes moist, normal external ear exam - Neck Neck exam: Present: normal inspection, full ROM - Respiratory Respiratory exam: Present: wheezes, rhonchi. Absent: respiratory distress - Cardiovascular Cardiovascular Exam: Present: regular rate, normal rhythm, normal heart sounds. Absent: bradycardia, tachycardia, irregular rhythm, systolic murmur, diastolic murmur, rubs, gallop - GI/Abdominal GI/Abdominal exam: Present: soft, normal bowel sounds. Absent: distended, tenderness, guarding, rebound, rigid, pulsatile mass - Rectal Rectal exam: Present: deferred - Extremities Exam Extremities exam: Present: normal inspection, full ROM, normal capillary refill. Absent: pedal edema, joint swelling, calf tenderness - Back Exam Back exam: Present: normal inspection, full ROM. Absent: tenderness, CVA tenderness (R), CVA tenderness (L), muscle spasm, paraspinal tenderness, vertebral tenderness - Neurological Exam Neurological exam: Present: alert, oriented X3, other (Extraocular movements intact. Tongue midline. No facial droop. Facial sensation intact to light touch in the V1, V2, V3 distribution bilaterally. 5 and 5 strength in 4 extremities.. Sensation is intact to light touch in 4 extremities.). Absent: motor sensory deficit - Psychiatric Psychiatric exam: Present: normal affect, normal mood - Skin Skin exam: Present: warm, dry, intact, normal color. Absent: rash ED Course Vital Signs 10/11/17 10/11/17 10/11/17 09:14 10:12 10:26 Temperature 98.3 F Pulse Rate 92 H Pulse Rate [ 88 90 Bilateral Upper Lobe] Respiratory 14 Rate Respiratory 20 20 Rate [Bilateral Upper Lobe] Blood Pressure 124/75 Blood Pressure 124/75 [Left] O2 Sat by Pulse 96 Oximetry 10/11/17 13:00 Temperature Pulse Rate 87 Pulse Rate [ Bilateral Upper Lobe] Respiratory 14 Rate Respiratory Rate [Bilateral Upper Lobe] Blood Pressure Blood Pressure 119/84 [Left] O2 Sat by Pulse 99 Oximetry - Reevaluation(s) Reevaluation #1: 10/11/17 11:54 Differential diagnosis, including but not limited to: COPD exacerbation, pneumonia, acute coronary syndrome Assessment and plan: 57-year-old male, low risk by AXEL score, low risk by heart score, troponin negative 2, EKG abnormal, but appears unchanged from prior, had a negative nuclear stress test later on this year, low risk by well' s criteria, with cough, chest wall pain, mucus production, wheezing, most likely COPD exacerbation. Patient treated aggressively with albuterol, Atrovent , steroids and magnesium. He is sitting comfortably in a stretcher in no distress, saturating 98-100% on 2 L of home oxygen which is his baseline therapy. Urinalysis is appreciated, however the patient denies irritative and obstructive urinary symptoms, denies testicular pain, denies recent sexual contacts. Second EKG is pending, patient will be given a trial of ambulation at this time. Reevaluation #2: 10/11/17 12:27 Repeat EKG is unremarkable and unchanged from prior. Patient is able to walk up and down in his apartment on supplemental oxygen with no increase in symptoms , slight decrease in saturation to 88%. Given history of COPD and recent albuterol and Atrovent, I would expect some VQ mismatch. At this point in time , the patient is suitable for discharge, he has home oxygen, and will be discharged with albuterol, Atrovent, steroids and Levaquin antibiotic. Reevaluation #3: 10/11/17 14:00 Patient was sitting comfortably in stretcher for hours without any respiratory difficulty. The patient was able to get himself dressed without difficulty as well. ED Medical Decision Making - Lab Data Result diagrams: 10/11/17 09:29 10/11/17 09:26 Vital Signs 10/11/17 10/11/17 10/11/17 09:14 10:12 10:26 Temperature 98.3 F Pulse Rate 92 H Pulse Rate [ 88 90 Bilateral Upper Lobe] Respiratory 14 Rate Respiratory 20 20 Rate [Bilateral Upper Lobe] Blood Pressure 124/75 Blood Pressure 124/75 [Left] O2 Sat by Pulse 96 Oximetry Lab Results 10/11/17 10/11/17 10/11/17 Range/Units 09:26 09:29 09:29 WBC 6.4 (4.5-11.0) K/mm3 RBC 3.96 (3.65-5.03) M/mm3 Hgb 10.8 L (11.8-15.2) gm/dl Hct 33.9 L (35.5-45.6) % MCV 86 (84-94) fl MCH 27 L (28-32) pg MCHC 32 (32-34) % RDW 16.0 H (13.2-15.2) % Plt Count 420 (140-440) K/mm3 Lymph % (Auto) 22.5 (13.4-35.0) % [place] % (Auto) 8.1 H (0.0-7.3) % Eos % (Auto) 14.5 H (0.0-4.3) % Baso % (Auto) 0.6 (0.0-1.8) % Lymph # 1.4 (1.2-5.4) K/mm3 [place] # 0.5 (0.0-0.8) K/mm3 Eos # 0.9 H (0.0-0.4) K/mm3 Baso # 0.0 (0.0-0.1) K/mm3 Seg Neutrophils % 54.3 (40.0-70.0) % Seg Neutrophils # 3.5 (1.8-7.7) K/mm3 PT (12.2-14.9) Sec. INR (0.87-1.13) APTT (24.2-36.6) Sec. Sodium 135 L (137-145) mmol/L Potassium 4.1 (3.6-5.0) mmol/L Chloride 96.2 L (98-107) mmol/L Carbon Dioxide 27 (22-30) mmol/L Anion Gap 16 mmol/L BUN 15 (9-20) mg/dL Creatinine 1.2 (0.8-1.5) mg/dL Estimated GFR > 60 ml/min BUN/Creatinine Ratio 13 % Glucose 92 (75-100) mg/dL Lactic Acid 1.10 (0.7-2.0) mmol/L Calcium 8.9 (8.4-10.2) mg/dL Total Bilirubin 0.20 (0.1-1.2) mg/dL AST 21 (5-40) units/L ALT 22 (7-56) units/L Alkaline Phosphatase 52 (35-129) units/L Troponin T < 0.010 (0.00-0.029) ng/mL NT-Pro-B Natriuret Pep (0-900) pg/mL Total Protein 7.0 (6.3-8.2) g/dL Albumin 4.2 (3.9-5) g/dL Albumin/Globulin Ratio 1.5 % Urine Color (Yellow) Urine Turbidity (Clear) Urine pH (5.0-7.0) Ur Specific [place] (1.003-1.030) Urine Protein (Negative) mg/dL Urine Glucose (UA) (Negative) mg/dL Urine Ketones (Negative) mg/dL Urine Blood (Negative) Urine Nitrite (Negative) Urine Bilirubin (Negative) Urine Urobilinogen (<2.0) mg/dL Ur Leukocyte Esterase (Negative) Urine WBC (Auto) (0.0-6.0) /HPF Urine RBC (Auto) (0.0-6.0) /HPF U Epithel Cells (Auto) (0-13.0) /HPF Urine Bacteria (Auto) (Negative) /HPF 10/11/17 10/11/17 10/11/17 Range/Units 09:31 09:31 10:01 WBC (4.5-11.0) K/mm3 RBC (3.65-5.03) M/mm3 Hgb (11.8-15.2) gm/dl Hct (35.5-45.6) % MCV (84-94) fl MCH (28-32) pg MCHC (32-34) % RDW (13.2-15.2) % Plt Count (140-440) K/mm3 Lymph % (Auto) (13.4-35.0) % [place] % (Auto) (0.0-7.3) % Eos % (Auto) (0.0-4.3) % Baso % (Auto) (0.0-1.8) % Lymph # (1.2-5.4) K/mm3 [place] # (0.0-0.8) K/mm3 Eos # (0.0-0.4) K/mm3 Baso # (0.0-0.1) K/mm3 Seg Neutrophils % (40.0-70.0) % Seg Neutrophils # (1.8-7.7) K/mm3 PT 13.6 (12.2-14.9) Sec. INR 0.99 (0.87-1.13) APTT 30.6 (24.2-36.6) Sec. Sodium (137-145) mmol/L Potassium (3.6-5.0) mmol/L Chloride (98-107) mmol/L Carbon Dioxide (22-30) mmol/L Anion Gap mmol/L BUN (9-20) mg/dL Creatinine (0.8-1.5) mg/dL Estimated GFR ml/min BUN/Creatinine Ratio % Glucose (75-100) mg/dL Lactic Acid (0.7-2.0) mmol/L Calcium (8.4-10.2) mg/dL Total Bilirubin (0.1-1.2) mg/dL AST (5-40) units/L ALT (7-56) units/L Alkaline Phosphatase (35-129) units/L Troponin T (0.00-0.029) ng/mL NT-Pro-B Natriuret Pep 30.46 (0-900) pg/mL Total Protein (6.3-8.2) g/dL Albumin (3.9-5) g/dL Albumin/Globulin Ratio % Urine Color Yellow (Yellow) Urine Turbidity Clear (Clear) Urine pH 5.0 (5.0-7.0) Ur Specific [place] 1.012 (1.003-1.030) Urine Protein <15 mg/dl (Negative) mg/dL Urine Glucose (UA) Neg (Negative) mg/dL Urine Ketones Neg (Negative) mg/dL Urine Blood Sm (Negative) Urine Nitrite Neg (Negative) Urine Bilirubin Neg (Negative) Urine Urobilinogen < 2.0 (<2.0) mg/dL Ur Leukocyte Esterase Lg (Negative) Urine WBC (Auto) > 182.0 H (0.0-6.0) /HPF Urine RBC (Auto) 7.0 (0.0-6.0) /HPF U Epithel Cells (Auto) 2.0 (0-13.0) /HPF Urine Bacteria (Auto) 2+ (Negative) /HPF 10/11/17 Range/Units 10:58 WBC (4.5-11.0) K/mm3 RBC (3.65-5.03) M/mm3 Hgb (11.8-15.2) gm/dl Hct (35.5-45.6) % MCV (84-94) fl MCH (28-32) pg MCHC (32-34) % RDW (13.2-15.2) % Plt Count (140-440) K/mm3 Lymph % (Auto) (13.4-35.0) % [place] % (Auto) (0.0-7.3) % Eos % (Auto) (0.0-4.3) % Baso % (Auto) (0.0-1.8) % Lymph # (1.2-5.4) K/mm3 [place] # (0.0-0.8) K/mm3 Eos # (0.0-0.4) K/mm3 Baso # (0.0-0.1) K/mm3 Seg Neutrophils % (40.0-70.0) % Seg Neutrophils # (1.8-7.7) K/mm3 PT (12.2-14.9) Sec. INR (0.87-1.13) APTT (24.2-36.6) Sec. Sodium (137-145) mmol/L Potassium (3.6-5.0) mmol/L Chloride (98-107) mmol/L Carbon Dioxide (22-30) mmol/L Anion Gap mmol/L BUN (9-20) mg/dL Creatinine (0.8-1.5) mg/dL Estimated GFR ml/min BUN/Creatinine Ratio % Glucose (75-100) mg/dL Lactic Acid (0.7-2.0) mmol/L Calcium (8.4-10.2) mg/dL Total Bilirubin (0.1-1.2) mg/dL AST (5-40) units/L ALT (7-56) units/L Alkaline Phosphatase (35-129) units/L Troponin T < 0.010 (0.00-0.029) ng/mL NT-Pro-B Natriuret Pep (0-900) pg/mL Total Protein (6.3-8.2) g/dL Albumin (3.9-5) g/dL Albumin/Globulin Ratio % Urine Color (Yellow) Urine Turbidity (Clear) Urine pH (5.0-7.0) Ur Specific [place] (1.003-1.030) Urine Protein (Negative) mg/dL Urine Glucose (UA) (Negative) mg/dL Urine Ketones (Negative) mg/dL Urine Blood (Negative) Urine Nitrite (Negative) Urine Bilirubin (Negative) Urine Urobilinogen (<2.0) mg/dL Ur Leukocyte Esterase (Negative) Urine WBC (Auto) (0.0-6.0) /HPF Urine RBC (Auto) (0.0-6.0) /HPF U Epithel Cells (Auto) (0-13.0) /HPF Urine Bacteria (Auto) (Negative) /HPF - EKG Data -: EKG Interpreted by Ct - EKG Data 10/11/17 11:56 normal sinus, 83 bpm, normal axis, high left ventricular voltage, incomplete right bundle-branch block, abnormal EKG, not consistent with STEMI, unchanged from prior. - Radiology Data Radiology results: report reviewed, image reviewed X-ray of the chest demonstrates chronic right lower lobe atelectasis, appears unchanged from prior, no pneumothorax Critical care attestation.: If time is entered above; I have spent that time in minutes in the direct care of this critically ill patient, excluding procedure time. ED Disposition Clinical Impression: COPD (chronic obstructive pulmonary disease) Disposition: DC-01 TO HOME OR SELFCARE Is pt being admited?: No Does the pt Need Aspirin: No Condition: Stable Instructions: Chronic Obstructive Pulmonary Disease (ED) Additional Instructions: Take the breathing medications as directed for the next 5 days. Take the steroids as directed for the next 4 days. Take antibiotics as directed for the next 4 days. 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 Follow up with a pulmonology/lung doctor within the next 2 weeks. Return to the ER right away with new pain, worsened pain, migration of pain, fevers, chills, lethargy, irritability, projectile vomiting, change in mental status, confusion, inability to tolerate liquid feeds. Do not consume alcohol with taking the medications. Do not smoke cigarettes or anything while taking these medications. Prescriptions: Albuterol Sulfate [Albuterol 0.63% NEBS] 0.63 mg IH Q4HR PRN #2 ml PRN Reason: Wheezing Albuterol Sulfate [Proair Respiclick] 90 mcg IH Q4HR PRN #2 aer.pow.ba PRN Reason: Wheezing Aspirin [Aspirin BABY CHEW TAB] 81 mg PO QDAY #30 tab.chew Ipratropium [Atrovent NEB] 0.5 mg IH Q4HR #2 ml Ipratropium [place] [Atrovent Hfa] 12.9 gm IH Q4HR #2 hfa.aer.ad Levofloxacin [Levaquin TAB] 500 mg PO QDAY #4 tablet predniSONE [Deltasone] 40 mg PO QDAY #8 tab Referrals: PRIMARY MD NEO [Primary Care Provider] - 3-5 Days LINDA JENKINS MD [Staff Physician] - 3-5 Days NIDHI COLINDRES MD [Staff Physician] - 3-5 Days [facility] [Provider Group] - 3-5 Days [facility] [Provider Group] - 3-5 Days
[2017-10-11 09:47] LABS: Basophils % (Auto) 0.6 % (0.0-1.8); Eosinophils % (Auto) 14.5 % (0.0-4.3); Hematocrit 33.9 % (35.5-45.6); Hemoglobin 10.8 gm/dl (11.8-15.2); Mean Corpuscular HGB Conc 32 % (32-34); Mean Corpuscular Hemoglobin 27 pg (28-32); Mean Corpuscular Volume 86 fl (84-94); Platelet Count 420 K/mm3 (140-440); Red Blood Count 3.96 M/mm3 (3.65-5.03); White Blood Count 6.4 K/mm3 (4.5-11.0)
[2017-10-11] MEDS ORDERED: PROVENTIL IH ONE (09:51)
[2017-10-11] MEDS ORDERED: NITROSTAT SL PRN (09:51)
[2017-10-11] MEDS ORDERED: ATROVENT IH ONE (09:51)
[2017-10-11] MEDS ORDERED: MAGNESIUM SULFATE 2GM/50ML 2 GM/50 ML BAG IV ONE (09:51)
[2017-10-11] MEDS ORDERED: TYLENOL PO ONE (09:51)
[2017-10-11 09:58] LABS: INR 0.99 (0.87-1.13); Partial Thromboplastin Time 30.6 Sec. (24.2-36.6)
[2017-10-11 10:22] LABS: Alanine Aminotransferase 22 units/L (7-56); Albumin 4.2 g/dL (3.9-5); Albumin/Globulin Ratio 1.5 %; Alkaline Phosphatase 52 units/L (35-129); Anion Gap 16 mmol/L; BUN/Creatinine Ratio 13; Blood Urea Nitrogen 15 mg/dL (9-20); Calcium 8.9 mg/dL (8.4-10.2); Carbon Dioxide 27 mmol/L (22-30); Chloride 96.2 mmol/L (98-107); Glucose 92 mg/dL (75-100); Potassium 4.1 mmol/L (3.6-5.0); Sodium 135 mmol/L (137-145)
--- NOTE | 2017-10-11 10:41 | XRay Report ---
PORTABLE CHEST: Dyspnea An AP portable view of the chest demonstrates a normal cardiac contour considering the limits of this technique. There is mild leftward rotation of the chest. The lungs are clear with no evidence of infiltrate, fluid or failure. No obvious change compared to August 28, 2017. IMPRESSION: Normal portable chest.
[2017-10-11 10:52] LABS: Bacteria,Urine 2+ /HPF (Negative); Bilirubin,Urine NEG (Negative); Blood,Urine SM (Negative); Ketones,Urine NEG (Negative); Leukocyte Esterase,Urine LG (Negative); Nitrite,Urine NEG (Negative); Protein,Urine <15 mg/dL mg/dL (Negative); Urobilinogen,Urine < 2.0 mg/dL (<2.0)
[2017-10-11 10:53] LABS: WBC,Urine > 182.0 /HPF (0.0-6.0)
[2017-10-11] MEDS ORDERED: LEVAQUIN PO ONE (12:28)
[2017-10-11 13:42] VITALS: BP 119/84
== END 2017-10-11 14:10 | disposition home or self-care (01) ==
LOC: ED 08:46
DX: J44.9 Chronic obstructive pulmonary disease, unspecified (principal); I10 Essential (primary) hypertension; J45.909 Unspecified asthma, uncomplicated; Z87.891 Personal history of nicotine dependence; Z79.82 Long term (current) use of aspirin
CPT/HCPCS: 36415; 71010; 80053; 81001; 82140; 83880; 84484; 85025; 85610; 85730; 93005; 93010; 94640; 96365; 96375; 99285; J2930; J3475

== ENCOUNTER 2017-10-15 16:45 | Emergency (ER) | payer MEDICAID ==
[2017-10-15 17:49] LABS: Mean Corpuscular HGB Conc 31 % (32-34); Mean Corpuscular Hemoglobin 27 pg (28-32); Mean Corpuscular Volume 85 fl (84-94); Platelet Count 469 K/mm3 (140-440); Red Blood Count 4.14 M/mm3 (3.65-5.03); Red Cell Distribution Width 15.9 % (13.2-15.2); White Blood Count 16.7 K/mm3 (4.5-11.0)
[2017-10-15 18:10] LABS: Anion Gap 17 mmol/L; BUN/Creatinine Ratio 16; Blood Urea Nitrogen 19 mg/dL (9-20); Calcium 8.7 mg/dL (8.4-10.2); Carbon Dioxide 27 mmol/L (22-30); Chloride 94.5 mmol/L (98-107); Glucose 88 mg/dL (75-100); Potassium 3.5 mmol/L (3.6-5.0); Sodium 135 mmol/L (137-145)
[2017-10-15 19:05] LABS: Basophils % (Manual) 0 % (0.0-1.8); Blastocytes % (Manual) 0 %
[2017-10-15 19:06] LABS: Diff Status Complete; RBC Morphology Normal
[2017-10-15] MEDS ORDERED: PROVENTIL IH ONE (19:42)
[2017-10-15] MEDS ORDERED: ATROVENT IH ONE (19:42)
[2017-10-15] MEDS ORDERED: DECADRON IV ONE (19:49)
[2017-10-15] MEDS ORDERED: MORPHINE IV ONE (20:47)
[2017-10-15] MEDS ORDERED: K-DUR PO ONE (20:48)
--- NOTE | 2017-10-15 21:16 | XRay Report ---
FINAL REPORT EXAM: XR CHEST 1V AP HISTORY: Chest pain TECHNIQUE: One view of the chest Comparison: Lung bases from CT 04/13/2017 FINDINGS: Heart size is normal. There is mild prominence of the minor fissure. Oxygen tubing projects over the left midlung. Lungs are mildly hyperlucent. There is an ill-defined mild right basilar patchy infiltrate. Costophrenic angles are sharp. There is mild bilateral acromioclavicular joint hypertrophy. IMPRESSION: Very mild right basilar patchy/nodular infiltrate. Otherwise, no acute cardiopulmonary pathology.
--- NOTE | 2017-10-15 22:16 | Cat Scan Report ---
FINAL REPORT PROCEDURE: CT CHEST W CON TECHNIQUE: Computerized axial tomography of the chest was performed during the IV injection of iodinated nonionic contrast. HISTORY: chest pain COMPARISON: No prior studies are available for comparison. TECHNICAL QUALITY: Satisfactory. FINDINGS: Heart and pericardium: Normal. Thoracic aorta: Normal. Pulmonary vasculature: Normal. Lymph nodes: No enlarged thoracic lymph nodes. Lungs: Lungs are expanded. There is mild COPD. There is a thin-walled cyst in the right upper lobe measuring 16 millimeters. There are mild fibrotic changes at the lung bases. There are no infiltrates. There is mild atelectasis at the left lung base. There are no effusions or pneumothoraces.. Pleural space: No effusion, thickening, or pneumothorax. Musculoskeletal structures: No significant abnormality. Upper abdominal structures: There is bilateral perinephric induration greater on the left which is nonspecific. Pyelonephritis not excluded. Please correlate clinically.. IMPRESSION: The heart size is normal. Lungs are expanded. There is mild COPD. There is a thin-walled cyst in the right upper lobe measuring 16 millimeters. There are mild fibrotic changes at the lung bases. There are no infiltrates. There is mild atelectasis at the left lung base. There are no effusions or pneumothoraces.. There is bilateral perinephric induration greater on the left which is nonspecific. Pyelonephritis not excluded. Please correlate clinically..
[2017-10-15] MEDS ORDERED: cefTRIAXone 1 GM in NACL 0.9% 20 ML IV ONE ×2 (23:07→23:15)
[2017-10-15] MEDS ORDERED: ROCEPHIN ONE (23:18)
[2017-10-16 00:48] LABS: Bilirubin,Urine NEG (Negative); Blood,Urine NEG (Negative); Ketones,Urine NEG (Negative); Leukocyte Esterase,Urine SM (Negative); Nitrite,Urine NEG (Negative); Protein,Urine <15 mg/dL mg/dL (Negative); Urobilinogen,Urine < 2.0 mg/dL (<2.0)
--- NOTE | 2017-10-16 01:09 | Emergency Department Report ---
ED Chest Pain HPI - General Chief Complaint: Chest Pain Stated Complaint: CP Time Seen by Provider: 10/15/17 19:31 Source: patient Mode of arrival: Wheelchair Limitations: No Limitations - History of Present Illness Initial Comments: Patient states he started having chest pain Saturday around 6 pm that has been constant around a 8/10 pain. He does have history of CAD with stents x 2. He also has COPD and ran out of his breathing treatments 3 days ago. He has had a stress test in the last 3-4 months. No Fever. He has been coughing but no sputum production. MD Complaint: chest pain -: Sudden, days(s) (2) Onset: during rest Pain Location: epigastric Pain Radiation: none Severity: severe Severity scale (0 -10): 8 Quality: aching, sharp Consistency: constant Improves With: nothing Other Symptoms: cough Treatments Prior to Arrival: none - Related Data Home Medications Medication Instructions Recorded Confirmed Last Taken Albuterol Sulfate [Proair 2 puff PO Q6H 02/15/17 04/21/17 Unknown Respiclick] Aspirin 81 mg PO DAILY 02/15/17 04/21/17 Unknown Metoprolol Succinate 25 mg PO BID 02/15/17 04/21/17 Unknown Multivit-Min/FA/Lycopen/Lutein 1 each PO DAILY 02/15/17 04/21/17 Unknown [Centrum Silver Tablet] Ticagrelor [Brilinta] 90 mg PO BID 02/15/17 04/21/17 Unknown Previous Rx's Medication Instructions Recorded Last Taken Type Albuterol Sulfate [Albuterol 0.63% 0.63 mg IH Q4HR PRN #2 ml 03/22/17 Unknown Rx NEBS] Albuterol Sulfate [Proair 90 mcg IH Q4HR PRN #2 aer.pow.ba 03/22/17 Unknown Rx Respiclick] Ipratropium [place] [Atrovent Hfa] 12.9 gm IH Q4HR #2 hfa.aer.ad 03/22/17 Unknown Rx Ipratropium [Atrovent NEB] 0.5 mg IH Q4HR #2 ml 03/22/17 Unknown Rx predniSONE [Deltasone] 40 mg PO QDAY #8 tab 03/22/17 Unknown Rx Methocarbamol [Robaxin TAB] 750 mg PO Q8H PRN #20 tablet 04/13/17 Unknown Rx traMADol [Ultram 50 MG tab] 50 mg PO Q4HR PRN #20 tablet 04/13/17 Unknown Rx Nitrofurantoin Macrocrysta(Nf) 50 mg PO QID #30 capsule 04/23/17 Unknown Rx [Macrodantin CAP] Pantoprazole [Protonix] 40 mg PO QDAY #30 tablet 04/23/17 Unknown Rx Azithromycin [Zithromax Z-CORAZON] 250 mg PO DAILY #6 tablet 08/28/17 Unknown Rx Benzonatate [Tessalon Perle] 100 mg PO Q6H #20 capsule 08/28/17 Unknown Rx Albuterol Sulfate [Albuterol 0.63% 0.63 mg IH Q4HR PRN #2 ml 10/11/17 Unknown Rx NEBS] Albuterol Sulfate [Proair 90 mcg IH Q4HR PRN #2 aer.pow.ba 10/11/17 Unknown Rx Respiclick] Aspirin [Aspirin BABY CHEW TAB] 81 mg PO QDAY #30 tab.chew 10/11/17 Unknown Rx Ipratropium [place] [Atrovent Hfa] 12.9 gm IH Q4HR #2 hfa.aer.ad 10/11/17 Unknown Rx Ipratropium [Atrovent NEB] 0.5 mg IH Q4HR #2 ml 10/11/17 Unknown Rx Levofloxacin [Levaquin TAB] 500 mg PO QDAY #4 tablet 10/11/17 Unknown Rx predniSONE [Deltasone] 40 mg PO QDAY #8 tab 10/11/17 Unknown Rx ALBUTEROL NEB's [Proventil 0.083% 2.5 mg IH TID #25 ml 10/16/17 Unknown Rx NEBS] Cephalexin [Keflex] 500 mg PO Q8HR 10 Days #30 cap 10/16/17 Unknown Rx predniSONE [Deltasone] 40 mg PO DAILY 5 Days #10 tablet 10/16/17 Unknown Rx Allergies Allergy/AdvReac Type Severity Reaction Status Date / Time No Known Allergies Allergy Verified 03/07/16 11:53 Heart Score - HEART Score History: Slightly suspicious EKG: Normal (Patient with recent heart cath and no change on EKG. Troponins were negative.) Age: 45-65 Risk factors: > 3 risk factors or hx of atherosclerotic disease Troponin: < normal limit HEART Score: 3 ED Review of Systems ROS: Stated complaint: CP Other details as noted in HPI Constitutional: denies: chills, fever Eyes: denies: eye pain, eye discharge, vision change ENT: denies: ear pain, throat pain Respiratory: cough. denies: shortness of breath, wheezing Cardiovascular: chest pain. denies: palpitations Endocrine: no symptoms reported Gastrointestinal: denies: abdominal pain, nausea, diarrhea Genitourinary: denies: urgency, dysuria Musculoskeletal: denies: back pain, joint swelling, arthralgia Skin: denies: rash, lesions Neurological: denies: headache, weakness, paresthesias Psychiatric: denies: anxiety, depression Hematological/Lymphatic: denies: easy bleeding, easy bruising ED Past Medical Hx - Past Medical History Hx Hypertension: Yes Hx Congestive Heart Failure: No Hx Diabetes: No Hx Asthma: Yes Hx COPD: Yes Hx HIV: No - Surgical History Additional Surgical History: Cardiac Stents - Social History Smoking Status: Former Smoker Substance Use Type: None - Medications Home Medications: Home Medications Medication Instructions Recorded Confirmed Last Taken Type Albuterol Sulfate [Proair 2 puff PO Q6H 02/15/17 04/21/17 Unknown History Respiclick] Aspirin 81 mg PO DAILY 02/15/17 04/21/17 Unknown History Metoprolol Succinate 25 mg PO BID 02/15/17 04/21/17 Unknown History Multivit-Min/FA/Lycopen/Lutein 1 each PO DAILY 02/15/17 04/21/17 Unknown History [Centrum Silver Tablet] Ticagrelor [Brilinta] 90 mg PO BID 02/15/17 04/21/17 Unknown History Albuterol Sulfate [Albuterol 0.63% 0.63 mg IH Q4HR PRN #2 ml 03/22/17 04/21/17 Unknown Rx NEBS] Albuterol Sulfate [Proair 90 mcg IH Q4HR PRN #2 aer.pow.ba 03/22/17 04/21/17 Unknown Rx Respiclick] Ipratropium [place] [Atrovent Hfa] 12.9 gm IH Q4HR #2 hfa.aer.ad 03/22/17 Unknown Rx Ipratropium [Atrovent NEB] 0.5 mg IH Q4HR #2 ml 03/22/17 04/21/17 Unknown Rx predniSONE [Deltasone] 40 mg PO QDAY #8 tab 03/22/17 04/21/17 Unknown Rx Methocarbamol [Robaxin TAB] 750 mg PO Q8H PRN #20 tablet 04/13/17 04/21/17 Unknown Rx traMADol [Ultram 50 MG tab] 50 mg PO Q4HR PRN #20 tablet 04/13/17 04/21/17 Unknown Rx Nitrofurantoin Macrocrysta(Nf) 50 mg PO QID #30 capsule 04/23/17 Unknown Rx [Macrodantin CAP] Pantoprazole [Protonix] 40 mg PO QDAY #30 tablet 04/23/17 Unknown Rx Azithromycin [Zithromax Z-CORAZON] 250 mg PO DAILY #6 tablet 08/28/17 Unknown Rx Benzonatate [Tessalon Perle] 100 mg PO Q6H #20 capsule 08/28/17 Unknown Rx Albuterol Sulfate [Albuterol 0.63% 0.63 mg IH Q4HR PRN #2 ml 10/11/17 Unknown Rx NEBS] Albuterol Sulfate [Proair 90 mcg IH Q4HR PRN #2 aer.pow.ba 10/11/17 Unknown Rx Respiclick] Aspirin [Aspirin BABY CHEW TAB] 81 mg PO QDAY #30 tab.chew 10/11/17 Unknown Rx Ipratropium [place] [Atrovent Hfa] 12.9 gm IH Q4HR #2 hfa.aer.ad 10/11/17 Unknown Rx Ipratropium [Atrovent NEB] 0.5 mg IH Q4HR #2 ml 10/11/17 Unknown Rx Levofloxacin [Levaquin TAB] 500 mg PO QDAY #4 tablet 10/11/17 Unknown Rx predniSONE [Deltasone] 40 mg PO QDAY #8 tab 10/11/17 Unknown Rx ALBUTEROL NEB's [Proventil 0.083% 2.5 mg IH TID #25 ml 10/16/17 Unknown Rx NEBS] Cephalexin [Keflex] 500 mg PO Q8HR 10 Days #30 cap 10/16/17 Unknown Rx predniSONE [Deltasone] 40 mg PO DAILY 5 Days #10 tablet 10/16/17 Unknown Rx ED Physical Exam - General Limitations: No Limitations General appearance: alert, in no apparent distress - Head Head exam: Present: atraumatic, normocephalic - Eye Eye exam: Present: normal appearance - ENT ENT exam: Present: mucous membranes moist - Neck Neck exam: Present: normal inspection - Respiratory Respiratory exam: Present: normal lung sounds bilaterally, wheezes (bilaterally with poor air movement.). Absent: respiratory distress - Cardiovascular Cardiovascular Exam: Present: regular rate, normal rhythm. Absent: systolic murmur, diastolic murmur, rubs, gallop - GI/Abdominal GI/Abdominal exam: Present: soft, normal bowel sounds - Rectal Rectal exam: Present: deferred - Extremities Exam Extremities exam: Present: normal inspection - Back Exam Back exam: Present: normal inspection, other (TTP of anterior chest with sternal palpation) - Neurological Exam Neurological exam: Present: alert, oriented X3 - Psychiatric Psychiatric exam: Present: normal affect, normal mood - Skin Skin exam: Present: warm, dry, intact, normal color. Absent: rash ED Course Vital Signs 10/15/17 10/15/17 10/15/17 17:44 18:59 19:00 Temperature 98.7 F Pulse Rate 76 74 Pulse Rate [ Anterior Bilateral Throughout] Respiratory 18 Rate Respiratory Rate [Anterior Bilateral Throughout] Blood Pressure 105/77 105/77 Blood Pressure 108/72 [Left] O2 Sat by Pulse 100 100 100 Oximetry 10/15/17 10/15/17 10/15/17 19:25 19:30 19:45 Temperature Pulse Rate 74 74 75 Pulse Rate [ Anterior Bilateral Throughout] Respiratory 15 15 16 Rate Respiratory Rate [Anterior Bilateral Throughout] Blood Pressure 113/82 119/79 Blood Pressure [Left] O2 Sat by Pulse 100 98 97 Oximetry 10/15/17 10/15/17 10/15/17 19:52 20:00 20:14 Temperature Pulse Rate 84 Pulse Rate [ 79 78 Anterior Bilateral Throughout] Respiratory 12 Rate Respiratory 17 18 Rate [Anterior Bilateral Throughout] Blood Pressure 98/71 Blood Pressure [Left] O2 Sat by Pulse 98 Oximetry 10/15/17 10/15/17 10/15/17 20:15 20:30 20:45 Temperature Pulse Rate 77 82 85 Pulse Rate [ Anterior Bilateral Throughout] Respiratory 15 14 11 L Rate Respiratory Rate [Anterior Bilateral Throughout] Blood Pressure 116/75 113/72 120/77 Blood Pressure [Left] O2 Sat by Pulse 99 98 98 Oximetry 10/15/17 10/15/17 10/15/17 21:23 21:31 21:45 Temperature Pulse Rate 92 H 92 H 85 Pulse Rate [ Anterior Bilateral Throughout] Respiratory 15 14 15 Rate Respiratory Rate [Anterior Bilateral Throughout] Blood Pressure 120/77 127/86 130/78 Blood Pressure [Left] O2 Sat by Pulse 94 99 Oximetry 10/15/17 10/15/17 10/15/17 22:00 22:15 22:31 Temperature Pulse Rate 87 88 87 Pulse Rate [ Anterior Bilateral Throughout] Respiratory 14 14 13 Rate Respiratory Rate [Anterior Bilateral Throughout] Blood Pressure 118/78 118/78 137/96 Blood Pressure [Left] O2 Sat by Pulse 99 99 98 Oximetry 10/15/17 10/15/17 10/15/17 22:45 23:00 23:15 Temperature Pulse Rate 89 90 82 Pulse Rate [ Anterior Bilateral Throughout] Respiratory 15 19 14 Rate Respiratory Rate [Anterior Bilateral Throughout] Blood Pressure 137/96 132/89 132/89 Blood Pressure [Left] O2 Sat by Pulse 95 96 99 Oximetry 10/15/17 23:31 Temperature Pulse Rate 85 Pulse Rate [ Anterior Bilateral Throughout] Respiratory 12 Rate Respiratory Rate [Anterior Bilateral Throughout] Blood Pressure 137/96 Blood Pressure [Left] O2 Sat by Pulse 99 Oximetry AXEL score - Axel Score Age > 65: (0) No Aspirin use within the Past 7 Days: (1) Yes 3 or more CAD Risk Factors: (1) Yes 2 or more Angina events in past 24 hrs: (0) No Known CAD with more than 50% Stenosis: (0) No Elevated Cardiac Markers: (0) No ST Deviation Greater than 0.5mm: (0) No AXEL Score: 2 ED Medical Decision Making - Lab Data Result diagrams: 10/15/17 17:40 10/15/17 17:40 LE in urine and elevated WBC with left shift. Low potassium as well. - EKG Data -: EKG Interpreted by Al EKG shows normal: sinus rhythm, axis, intervals, QRS complexes, ST-T waves (neg T-waves in II, III, aVF) - EKG Data When compared to previous EKG there are: no significant change (from 03/22/17 EKG) Interpretation: no acute changes, unchanged when compared t (03/22/17) 10/16/17 01:14 No change from prior EKG. - Radiology Data Radiology results: report reviewed CXR suggested pneumonia and CT chest showed some concern for pylonephritis. - Medical Decision Making Patient clearly has some infectious process. Initially it was believed to be lungs but his CT did not confirm. We will treat as pneumonia as we gave rocephin 1 gm IV and will do keflex 500 mg TID x 10 days. He did have LE in urine so it would be treated as well by keflex. We will Rx albuterol for use up to Q2 hours for cough. He did well respiratory snow and felt better so we will do prednisone 40 mg daily x 5 days. His CAD history is concerning but with several negative troponins, no EKG changes and recent heart cath, I do not think this is cardiac related. Critical care attestation.: If time is entered above; I have spent that time in minutes in the direct care of this critically ill patient, excluding procedure time. ED Disposition Clinical Impression: Hypokalemia Pneumonia of both lower lobes Qualifiers: Pneumonia type: due to unspecified organism Qualified Code(s): J18.9 - Pneumonia, unspecified organism COPD (chronic obstructive pulmonary disease) Qualifiers: COPD type: unspecified COPD Qualified Code(s): J44.9 - Chronic obstructive pulmonary disease, unspecified UTI (urinary tract infection) Qualifiers: Urinary tract infection type: acute cystitis Hematuria presence: without hematuria Qualified Code(s): N30.00 - Acute cystitis without hematuria Disposition: - TO HOME OR SELFCARE Is pt being admited?: No Does the pt Need Aspirin: No Condition: Good Instructions: Bacterial Pneumonia (ED), Chronic Obstructive Pulmonary Disease ( ED) Prescriptions: ALBUTEROL NEB's [Proventil 0.083% NEBS] 2.5 mg IH TID #25 ml Cephalexin [Keflex] 500 mg PO Q8HR 10 Days #30 cap predniSONE [Deltasone] 40 mg PO DAILY 5 Days #10 tablet Referrals: PRIMARY CARE, [Primary Care Provider] - 3-5 Days Time of Disposition: :
[2017-10-16 01:44] VITALS: BP 117/90
== END 2017-10-16 01:44 | disposition home or self-care (01) ==
LOC: ED 16:45
DX: J18.9 Pneumonia, unspecified organism (principal); J44.9 Chronic obstructive pulmonary disease, unspecified; N30.00 Acute cystitis without hematuria; E87.6 Hypokalemia; J45.909 Unspecified asthma, uncomplicated; I10 Essential (primary) hypertension; Z87.891 Personal history of nicotine dependence; Z98.890 Other specified postprocedural states; Z79.82 Long term (current) use of aspirin
CPT/HCPCS: 36415; 71010; 71260; 80048; 81001; 84484; 85007; 85025; 93005; 93010; 94640; 96374; 96375; 99285; J0696; J1100; J2270; Q9967

== ENCOUNTER 2018-07-03 21:21 | Emergency (ER) | payer MEDICAID ==
[2018-07-03] MEDS ORDERED: PROVENTIL IH ONE ×2 (21:27→22:00)
[2018-07-03] MEDS ORDERED: ATROVENT IH ONE ×2 (21:27→22:00)
[2018-07-03] MEDS ORDERED: LEVAQUIN PO ONE (21:51)
[2018-07-03 22:07] LABS: Basophils % (Auto) 0.3 % (0.0-1.8); Eosinophils # (Auto) 0.8 K/mm3 (0.0-0.4); Eosinophils % (Auto) 8.6 % (0.0-4.3); Hematocrit 30.4 % (35.5-45.6); Hemoglobin 9.9 gm/dl (11.8-15.2); Lymphocytes # (Auto) 1.8 K/mm3 (1.2-5.4); Lymphocytes % (Auto) 20.9 % (13.4-35.0); Mean Corpuscular HGB Conc 33 % (32-34); Mean Corpuscular Hemoglobin 27 pg (28-32); Mean Corpuscular Volume 82 fl (84-94); Monocytes # (Auto) 0.6 K/mm3 (0.0-0.8); Monocytes % (Auto) 6.8 % (0.0-7.3); Platelet Count 321 K/mm3 (140-440); Red Blood Count 3.72 M/mm3 (3.65-5.03)
[2018-07-03 22:22] LABS: BUN/Creatinine Ratio 11; Blood Urea Nitrogen 14 mg/dL (9-20); Calcium 8.7 mg/dL (8.4-10.2); Hemolysis Index 5
[2018-07-03] MEDS ORDERED: K-DUR PO ONE (23:09)
--- NOTE | 2018-07-03 23:16 | Emergency Department Report ---
ED Shortness of Breath HPI - General Chief Complaint: Adult Asthma Stated Complaint: FABRICE Time Seen by Provider: 07/03/18 21:51 Source: EMS Mode of arrival: Ambulatory Limitations: No Limitations - History of Present Illness Initial Comments: Progressive onset SOB with a productive cough. Was previously on 40 mg prednisone daily, azithro with mild improvement of symptoms. He feels like he is still struggling to breathe. Ran out of medicine for his nebulizer. Afebrile. No leg swelling. Former smoker. On xarelto. - Related Data Home Medications Medication Instructions Recorded Confirmed Last Taken Albuterol Sulfate [Proair 2 puff PO Q6H 02/15/17 04/21/17 Unknown Respiclick] Aspirin 81 mg PO DAILY 02/15/17 04/21/17 Unknown Metoprolol Succinate 25 mg PO BID 02/15/17 04/21/17 Unknown Multivit-Min/FA/Lycopen/Lutein 1 each PO DAILY 02/15/17 04/21/17 Unknown [Centrum Silver Tablet] Ticagrelor [Brilinta] 90 mg PO BID 02/15/17 04/21/17 Unknown Previous Rx's Medication Instructions Recorded Last Taken Type Albuterol Sulfate [Proair 90 mcg IH Q4HR PRN #2 aer.pow.ba 03/22/17 Unknown Rx Respiclick] Ipratropium [place] [Atrovent Hfa] 12.9 gm IH Q4HR #2 hfa.aer.ad 03/22/17 Unknown Rx Ipratropium [Atrovent NEB] 0.5 mg IH Q4HR #2 ml 03/22/17 Unknown Rx predniSONE [Deltasone] 40 mg PO QDAY #8 tab 03/22/17 Unknown Rx Methocarbamol [Robaxin TAB] 750 mg PO Q8H PRN #20 tablet 04/13/17 Unknown Rx traMADol [Ultram 50 MG tab] 50 mg PO Q4HR PRN #20 tablet 04/13/17 Unknown Rx Nitrofurantoin Macrocrysta(Nf) 50 mg PO QID #30 capsule 04/23/17 Unknown Rx [Macrodantin CAP] Pantoprazole [Protonix] 40 mg PO QDAY #30 tablet 04/23/17 Unknown Rx Azithromycin [Zithromax Z-CORAZON] 250 mg PO DAILY #6 tablet 08/28/17 Unknown Rx Benzonatate [Tessalon Perle] 100 mg PO Q6H #20 capsule 08/28/17 Unknown Rx Albuterol Sulfate [Albuterol 0.63% 0.63 mg IH Q4HR PRN #2 ml 10/11/17 Unknown Rx NEBS] Albuterol Sulfate [Proair 90 mcg IH Q4HR PRN #2 aer.pow.ba 10/11/17 Unknown Rx Respiclick] Aspirin [Aspirin BABY CHEW TAB] 81 mg PO QDAY #30 tab.chew 10/11/17 Unknown Rx Ipratropium [place] [Atrovent Hfa] 12.9 gm IH Q4HR #2 hfa.aer.ad 10/11/17 Unknown Rx Ipratropium [Atrovent NEB] 0.5 mg IH Q4HR #2 ml 10/11/17 Unknown Rx levoFLOXacin [Levaquin TAB] 500 mg PO QDAY #4 tablet 10/11/17 Unknown Rx predniSONE [Deltasone] 40 mg PO QDAY #8 tab 10/11/17 Unknown Rx ALBUTEROL NEB's [Proventil 0.083% 2.5 mg IH TID #25 ml 10/16/17 Unknown Rx NEBS] cephALEXin [Keflex] 500 mg PO Q8HR 10 Days #30 cap 10/16/17 Unknown Rx predniSONE [Deltasone] 40 mg PO DAILY 5 Days #10 tablet 10/16/17 Unknown Rx Albuterol Sulfate [Albuterol 0.63% 0.63 mg IH Q4HR PRN #100 ml 07/04/18 Unknown Rx NEBS] levoFLOXacin [Levaquin TAB] 500 mg PO QDAY #4 tablet 07/04/18 Unknown Rx predniSONE [Deltasone] 20 mg PO QDAY #23 tab 07/04/18 Unknown Rx Allergies Allergy/AdvReac Type Severity Reaction Status Date / Time No Known Allergies Allergy Verified 03/07/16 11:53 ED Review of Systems ROS: Stated complaint: FABRICE Other details as noted in HPI Comment: All other systems reviewed and negative Respiratory: cough, shortness of breath, wheezing Cardiovascular: chest pain ED Past Medical Hx - Past Medical History Previous Medical History?: Yes Hx Hypertension: Yes Hx Congestive Heart Failure: No Hx Diabetes: No Hx Asthma: Yes Hx COPD: Yes Hx HIV: No - Surgical History Past Surgical History?: No Additional Surgical History: Cardiac Stents - Social History Smoking Status: Unknown if ever smoked Substance Use Type: None - Medications Home Medications: Home Medications Medication Instructions Recorded Confirmed Last Taken Type Albuterol Sulfate [Proair 2 puff PO Q6H 02/15/17 04/21/17 Unknown History Respiclick] Aspirin 81 mg PO DAILY 02/15/17 04/21/17 Unknown History Metoprolol Succinate 25 mg PO BID 02/15/17 04/21/17 Unknown History Multivit-Min/FA/Lycopen/Lutein 1 each PO DAILY 02/15/17 04/21/17 Unknown History [Centrum Silver Tablet] Ticagrelor [Brilinta] 90 mg PO BID 02/15/17 04/21/17 Unknown History Albuterol Sulfate [Proair 90 mcg IH Q4HR PRN #2 aer.pow.ba 03/22/17 04/21/17 Unknown Rx Respiclick] Ipratropium [place] [Atrovent Hfa] 12.9 gm IH Q4HR #2 hfa.aer.ad 03/22/17 Unknown Rx Ipratropium [Atrovent NEB] 0.5 mg IH Q4HR #2 ml 03/22/17 04/21/17 Unknown Rx predniSONE [Deltasone] 40 mg PO QDAY #8 tab 03/22/17 04/21/17 Unknown Rx Methocarbamol [Robaxin TAB] 750 mg PO Q8H PRN #20 tablet 04/13/17 04/21/17 Unknown Rx traMADol [Ultram 50 MG tab] 50 mg PO Q4HR PRN #20 tablet 04/13/17 04/21/17 Unknown Rx Nitrofurantoin Macrocrysta(Nf) 50 mg PO QID #30 capsule 04/23/17 Unknown Rx [Macrodantin CAP] Pantoprazole [Protonix] 40 mg PO QDAY #30 tablet 04/23/17 Unknown Rx Azithromycin [Zithromax Z-CORAZON] 250 mg PO DAILY #6 tablet 08/28/17 Unknown Rx Benzonatate [Tessalon Perle] 100 mg PO Q6H #20 capsule 08/28/17 Unknown Rx Albuterol Sulfate [Albuterol 0.63% 0.63 mg IH Q4HR PRN #2 ml 10/11/17 Unknown Rx NEBS] Albuterol Sulfate [Proair 90 mcg IH Q4HR PRN #2 aer.pow.ba 10/11/17 Unknown Rx Respiclick] Aspirin [Aspirin BABY CHEW TAB] 81 mg PO QDAY #30 tab.chew 10/11/17 Unknown Rx Ipratropium [place] [Atrovent Hfa] 12.9 gm IH Q4HR #2 hfa.aer.ad 10/11/17 Unknown Rx Ipratropium [Atrovent NEB] 0.5 mg IH Q4HR #2 ml 10/11/17 Unknown Rx levoFLOXacin [Levaquin TAB] 500 mg PO QDAY #4 tablet 10/11/17 Unknown Rx predniSONE [Deltasone] 40 mg PO QDAY #8 tab 10/11/17 Unknown Rx ALBUTEROL NEB's [Proventil 0.083% 2.5 mg IH TID #25 ml 10/16/17 Unknown Rx NEBS] cephALEXin [Keflex] 500 mg PO Q8HR 10 Days #30 cap 10/16/17 Unknown Rx predniSONE [Deltasone] 40 mg PO DAILY 5 Days #10 tablet 10/16/17 Unknown Rx Albuterol Sulfate [Albuterol 0.63% 0.63 mg IH Q4HR PRN #100 ml 07/04/18 Unknown Rx NEBS] levoFLOXacin [Levaquin TAB] 500 mg PO QDAY #4 tablet 07/04/18 Unknown Rx predniSONE [Deltasone] 20 mg PO QDAY #23 tab 07/04/18 Unknown Rx ED Physical Exam - General Limitations: No Limitations General appearance: alert, in no apparent distress - Head Head exam: Present: atraumatic, normocephalic - Eye Eye exam: Present: normal appearance - ENT ENT exam: Present: mucous membranes moist - Neck Neck exam: Present: normal inspection - Respiratory Respiratory exam: Present: normal lung sounds bilaterally, wheezes (bilateral), rhonchi. Absent: respiratory distress - Cardiovascular Cardiovascular Exam: Present: regular rate, normal rhythm, tachycardia. Absent : systolic murmur, diastolic murmur, rubs, gallop, JVD - GI/Abdominal GI/Abdominal exam: Present: soft, normal bowel sounds. Absent: distended, tenderness, guarding, rebound - Rectal Rectal exam: Present: deferred - Extremities Exam Extremities exam: Present: normal inspection. Absent: pedal edema - Back Exam Back exam: Present: normal inspection - Neurological Exam Neurological exam: Present: alert, oriented X3 - Psychiatric Psychiatric exam: Present: normal affect, normal mood - Skin Skin exam: Present: warm, dry, intact, normal color. Absent: rash ED Course Vital Signs 07/03/18 07/03/18 07/03/18 21:27 21:30 21:41 Temperature 98.1 F Pulse Rate 104 H Pulse Rate [ Anterior Bilateral Throughout] Respiratory 20 Rate Respiratory Rate [Anterior Bilateral Throughout] Blood Pressure 127/81 113/74 130/71 O2 Sat by Pulse 96 98 98 Oximetry 07/03/18 07/03/18 07/03/18 21:45 22:00 22:05 Temperature Pulse Rate Pulse Rate [ 93 H Anterior Bilateral Throughout] Respiratory Rate Respiratory 20 Rate [Anterior Bilateral Throughout] Blood Pressure 113/74 120/60 O2 Sat by Pulse 100 96 Oximetry 07/03/18 07/03/18 07/03/18 22:15 22:48 23:29 Temperature Pulse Rate Pulse Rate [ 102 H Anterior Bilateral Throughout] Respiratory Rate Respiratory 20 Rate [Anterior Bilateral Throughout] Blood Pressure 113/74 120/60 O2 Sat by Pulse 100 90 Oximetry 07/03/18 07/03/18 07/04/18 23:30 23:46 00:00 Temperature Pulse Rate Pulse Rate [ Anterior Bilateral Throughout] Respiratory Rate Respiratory Rate [Anterior Bilateral Throughout] Blood Pressure 120/60 120/60 116/64 O2 Sat by Pulse 91 92 90 Oximetry 07/04/18 00:45 Temperature Pulse Rate Pulse Rate [ Anterior Bilateral Throughout] Respiratory 20 Rate Respiratory Rate [Anterior Bilateral Throughout] Blood Pressure O2 Sat by Pulse 97 Oximetry - Reevaluation(s) Reevaluation #1: Potassium is 3.2 on recheck. Patient was given 40 mEq oral potassium 4. EKG is nonischemic. On reevaluation, patient feels much improved. He was able to walk without difficulty. He has been placed on Levaquin and a prednisone taper. He has been instructed to follow-up with his family doctor in 2-3 days for recheck of his breathing. 07/04/18 02:56 ED Medical Decision Making - Lab Data Result diagrams: 07/03/18 21:57 07/03/18 21:57 - EKG Data -: EKG Interpreted by Me EKG shows normal: sinus rhythm, axis, intervals, QRS complexes, ST-T waves Rate: normal - EKG Data Interpretation: no acute changes - Radiology Data Radiology results: report reviewed, image reviewed - Medical Decision Making 57-year-old male with past medical history of asthma versus COPD presents to the ER with shortness of breath and productive cough. Vital signs are stable. Patient is well-appearing. In no respiratory distress. Speaking in full sentences. Bilateral rhonchi wheezing noted on exam. Chest x-ray shows no focal process. He is satting fine on room air. He was given a breathing treatment in the ER. EMS gave him 125 mg Solu-Medrol. On reevaluation, patient feels much better. I'm still waiting for his EKG. If it is unremarkable, patient will be discharged with a prednisone taper and will Levaquin. He'll be instructed to follow-up with his family doctor in 2-3 days for recheck of his breathing. - Differential Diagnosis CHF, COPD, ACS, PE, asthma, pneumonia, pneumothorax Critical care attestation.: If time is entered above; I have spent that time in minutes in the direct care of this critically ill patient, excluding procedure time. ED Disposition Clinical Impression: Asthma exacerbation Disposition: [id number] TO HOME OR SELFCARE Is pt being admited?: No Does the pt Need Aspirin: No Condition: Stable Prescriptions: Albuterol Sulfate [Albuterol 0.63% NEBS] 0.63 mg IH Q4HR PRN #100 ml PRN Reason: Wheezing levoFLOXacin [Levaquin TAB] 500 mg PO QDAY #4 tablet predniSONE [Deltasone] 20 mg PO QDAY #23 tab Referrals: PRIMARY CARE, [Primary Care Provider] - 3-5 Days
--- NOTE | 2018-07-04 00:07 | XRay Report ---
FINAL REPORT EXAM: XR CHEST ROUTINE 2V HISTORY: chest pain TECHNIQUE: PA and lateral views of the chest were obtained and compared to the study of 10/15/2017. FINDINGS: The heart size and mediastinum appear normal. The lungs are clear. Pleural fluid is not seen. The skeletal structures are well-maintained. IMPRESSION: No acute cardiopulmonary process.
[2018-07-04] MEDS ORDERED: MOTRIN PO ONE (00:34)
[2018-07-04] MEDS ORDERED: LEVAQUIN ONE (00:37)
[2018-07-04 03:33] VITALS: BP 98/62
== END 2018-07-04 03:33 | disposition home or self-care (01) ==
LOC: ED 21:21
DX: J45.901 Unspecified asthma with (acute) exacerbation (principal); I10 Essential (primary) hypertension; J44.9 Chronic obstructive pulmonary disease, unspecified; Z79.82 Long term (current) use of aspirin; Z79.899 Other long term (current) drug therapy
CPT/HCPCS: 36415; 71046; 80048; 83880; 84484; 85025; 93005; 93010; 94640